=== PATIENT | female | born 1945 | race Caucasian/White ===

== ENCOUNTER 2020-10-05 14:26 | Inpatient (IN) | payer MEDICARE, SELFPAY ==
[2020-10-05] VITALS (15 sets, daily range): BP systolic 105–157; BP diastolic 53–98; PULSE 103–134; RESP 18–28; TEMP 35.9–36.9; O2SAT 88–98; BMI 36.7; BMI 38.9
--- NOTE | 2020-10-05 14:30 | NURSING ---
NO OLD EKGS
--- NOTE | 2020-10-05 14:39 | EKG12_ITS ---
Test Reason : SOB Blood Pressure : / mmHG Vent. Rate : 106 BPM Atrial Rate : 366 BPM P-R Int : 000 ms QRS Dur : 076 ms QT Int : 346 ms P-R-T Axes : 000 002 005 degrees QTc Int : 459 ms Atrial flutter with variable A-V block Nonspecific T wave abnormality Abnormal ECG Confirmed by LEIGHA CONNER, CHRIS ([id number]), photography editor HELENA MORALES ([id number]) on 10/07/2020 12:27:44 PM Referred By: GOKUL Confirmed By:CHRIS AHUJA MD
--- NOTE | 2020-10-05 14:40 | EDS_ITS ---
HPI History of Present Illness Chief Complaint: Shortness of Breath Informant: patient Onset/Context/Timing Onset: Days (Day 9 of symptoms) Context: Gradual Onset Current Severity: Moderate Maximum Severity: Moderate Narrative Narrative: Patient presents with known Covid positive status and increasing shortness of breath. Patient states that she is currently on day 9 of symptoms. She has mild cough with shortness of breath. She has not measured a fever. She does report poor p.o. intake. On arrival to the emergency room pulse ox on room air is 88%. Patient denies chest pain. She is on Eliquis secondary to a history of atrial fibrillation. [facility] Medical History Afib CAD (coronary artery disease) Allergy/AdvReac Type Severity Reaction Status Date / Time No Known Allergies Allergy Verified 10/05/20 15:08 Social History Smoking Status: Never smoker ROS ROS ED Constitutional Constitutional ED: Denies chills or fever(s) Eyes Eyes: Denies change in vision ENT ENT ED: Denies sore throat Cardiovascular Cardiovascular: Denies chest pain Respiratory/Chest Respiratory/Chest: Reports cough and dyspnea Gastrointestinal Gastrointestinal: Reports diarrhea and nausea; Denies abdominal pain or vomiting Genitourinary Genitourinary ED: Denies dysuria Musculoskeletal Musculoskeletal: Denies back pain Integumentary Denies rash Neurologic Neurologic: Reports weakness; Denies headache(s) Psychiatric Psychiatric: Denies anxiety or depression Endocrine Endocrinology: Denies polydipsia or polyuria Allergic/Immunologic Allergic/Immunologic ED: Denies urticaria EXAM Physical Exam Const Vital Signs: 10/05/20 14:28 10/05/20 14:32 10/05/20 14:33 Temperature 97.8 F 97.8 F Temperature Source Temporal Temporal Pulse Rate 103 H 103 H Respiratory Rate 18 19 H Respiratory Effort Respiratory Depth Respiratory Pattern Blood Pressure 127/74 H 151/90 H Blood Pressure Mean 91 110 Pulse Ox 88 94 94 Oxygen Delivery Method Room Air Nasal Cannula Nasal Cannula Oxygen Flow Rate (L/min) 2 10/05/20 15:05 Temperature Temperature Source Pulse Rate Respiratory Rate Respiratory Effort Non-Labored Respiratory Depth Normal Respiratory Pattern Normal Blood Pressure Blood Pressure Mean Pulse Ox Oxygen Delivery Method Nasal Cannula Oxygen Flow Rate (L/min) 2 Positive well nourished and well developed General Appearance ED: well developed HEENT Reports normocephalic and head/scalp atraumatic Eyes PERRL and EOMs intact bilaterally Neck supple Chest Wall inspection of chest normal and palpation of chest normal Resp normal respiratory effort Auscultation: diminished lung sounds Cardio regular rate and regular rhythm GI non-tender Auscultation: hypoactive bowel sounds Palpation: soft Extremity normal to inspection Neuro oriented x3 and no sensory deficits noted Sensorium / Orientation: alert Motor Exam: strength 5/5 throughout Psych mental status grossly normal Skin no rashes or lesions noted MDM MDM MDM Narrative Medical decision making narrative: Patient is currently on 2 and half liters nasal cannula. O2 sats to the mid 90s. Labs, chest x-ray are ordered. Patient is on Eliquis chronically. Lab Data Attestation: I reviewed the patient's lab results. Labs: Laboratory Results - last 24 hr 10/05/20 10/05/20 10/05/20 14:45 14:45 14:45 WBC 8.9 RBC 5.07 Hgb 15.1 H Hct 46.2 MCV 91.1 MCH 29.8 MCHC 32.7 RDW Std Deviation 44.7 H RDW Coeff of Tor 13.2 Plt Count 271 MPV 10.2 Immature Gran % (Auto) 0.700 Neut % (Auto) 80.6 H Lymph % (Auto) 13.0 L Roane % (Auto) 5.4 Eos % (Auto) 0.1 Baso % (Auto) 0.2 Absolute Neuts (auto) 7.2 Absolute Lymphs (auto) 1.15 Nucleated RBC % 0 Sodium 137 Potassium 4.3 Chloride 102 Carbon Dioxide 25.0 Anion Gap 10 BUN 43 H Creatinine 1.46 H Estim Creat Clear Calc 29.19 Est GFR (MDRD) Af Amer 45 L Est GFR (MDRD) Non-Af 37 L BUN/Creatinine Ratio 29.5 H Glucose 155 H Lactic Acid 2.9 H* Calcium 9.4 Total Bilirubin 0.80 AST 55 H ALT 26 Alkaline Phosphatase 81 Total Protein 7.2 Albumin 3.0 L Globulin 4.2 Albumin/Globulin Ratio 0.7 L Procalcitonin 10/05/20 14:45 WBC RBC Hgb Hct MCV MCH MCHC RDW Std Deviation RDW Coeff of Tor Plt Count MPV Immature Gran % (Auto) Neut % (Auto) Lymph % (Auto) Roane % (Auto) Eos % (Auto) Baso % (Auto) Absolute Neuts (auto) Absolute Lymphs (auto) Nucleated RBC % Sodium Potassium Chloride Carbon Dioxide Anion Gap BUN Creatinine Estim Creat Clear Calc Est GFR (MDRD) Af Amer Est GFR (MDRD) Non-Af BUN/Creatinine Ratio Glucose Lactic Acid Calcium Total Bilirubin AST ALT Alkaline Phosphatase Total Protein Albumin Globulin Albumin/Globulin Ratio Procalcitonin 0.13 H Radiography Chest X-Ray - ED: 1 View, Read by ED Physician and Left Infiltrate EKG Initial EKG: Attestation: I personally reviewed and interpreted this EKG as follows: Interpretation: Atrial Flutter (Atrial flutter at 106. No acute ST change.) Treatment and Re-Evaluation Comments:: On repeat evaluation patient is resting comfortably. O2 sat is 96% on oxygen. Formal chest x-ray report is not yet back, however per my interpretation it appears that she has a left-sided infiltrate. She will be covered with a course of Decadron. She will require admission as room air oxygen level was 88%. Discharge Plan Triage Chief Complaint: Shortness of Breath ED Provider: Amanda Odonnell Dx/Rx/DC Orders Clinical Impression: Pneumonia due to COVID-19 virus Primary Care Provider: Oneil Warren Referrals: Oneil Warren MD [Primary Care Provider] - Disposition Disposition: Acute Care [facility]
[2020-10-05 14:57] LABS: Absolute Lymphocyte Count 1.15 X10^3/uL (0.83-4.51); Absolute Neutrophil Count 7.2 X10^3/uL (2.0-7.7); Basophil# 0.02 X10^3/uL; Basophil% 0.2 % (0-1); Eosinophil# 0.01 X10^3/uL; Eosinophils% 0.1 % (0-5); Hematocrit 46.2 % (37-47); Hemoglobin 15.1 g/dL (12.0-15.0); Lymphocyte # 1.15 X10^3/ul (0.83-4.51); Mean Corp Hgb Conc 32.7 g/dL (32-36); Mean Corpuscular Hgb 29.8 pg (27.0-32.0); Mean Corpuscular Volume 91.1 fL (81-99); Mean Platelet Vol. 10.2 fl (6.2-12.0); Monocyte# 0.48 X10^3/uL; Monocyte% 5.4 % (0-10); NRBC Flagged by Analyzer 0 % (0-5); Neutrophil # 7.15 X10^3/uL (2.7-7.7); Neutrophil % 80.6 % (47-70); Platelet Count 271 K/mm3 (150-450); RBC Distribution Width CV 13.2 % (11.6-14.6); RBC Distribution Width SD 44.7 fl (35.1-43.9); Red Blood Count 5.07 M/mm3 (4.2-5.4); White Blood Count 8.9 K/mm3 (4.4-11.0)
[2020-10-05 15:14] LABS: ALB/GLOB Ratio 0.7 RATIO (0.9-2.4); AST(SGOT) 55 U/L (15-37); Alanine Aminotransfer ALT/SGPT 26 U/L (13-56); Alkaline Phosphatase 81 U/L (45-117); Anion Gap 10 (5-15); BUN 43 mg/dL (7-18); BUN/Creat Ratio 29.5 RATIO (10-20); Calcium,Total 9.4 mg/dL (8.5-10.1); Chloride 102 mmol/L (98-107); Creatinine, Serum 1.46 mg/dL (0.55-1.02); EST Glomerular Filtration Rate 37 mL/min (>60); Est Glom Filt Rate - Afr Amer 45 mL/min (>60); Estimated Creatinine Clearance 29.19 ml/min; Globulin 4.2 g/dL (2.2-4.2); Glucose 155 mg/dL (74-106); Potassium 4.3 mmol/L (3.5-5.1); Protein, Total 7.2 g/dL (6.4-8.2); Sodium Level 137 mmol/L (136-145)
[2020-10-05 15:22] LABS: Procalcitonin 0.13 ng/mL (0.00-0.09)
--- NOTE | 2020-10-05 15:22 | RAD_ITS ---
STUDY: X-RAY CHEST REASON FOR EXAM: Female, 75 years old. Cough TECHNIQUE: Single AP portable view of the chest. COMPARISON: None. FINDINGS: EKG electrodes are seen. The lungs are clear and expanded. There is no demonstrated pleural abnormality. There is borderline cardiomegaly. Normal mediastinum and lashawn. Normal visualized pulmonary arteries. There is atherosclerotic calcification of the aortic arch with tortuosity. Normal visualized thoracic spine. Normal visualized ribs, clavicles, and shoulders. There is no demonstrated abnormality of the visualized soft tissue structures of the upper abdomen. RAD/Chest 1 View (Portable) IMPRESSION: No acute abnormality is seen. Electronically Signed: Darrel Ohara MD at 15:37 EDT , Service support ,
[2020-10-05 15:23] LABS: Lactic Acid 2.9 mmol/L (0.4-1.9)
[2020-10-05] MEDS: dexAMETHasone 10 MG/ML Vial 6 MG IV (15:48)
--- NOTE | 2020-10-05 15:49 | PCM.HP.STD ---
HPI - General General Date of Admission: 10/05/20 Date of Service: 10/05/20 Chief Complaint: Dyspnea, cough, worsening, recent COVID + status, sxs x 9 days. HPI Narrative The patient is a 75 y/o F w/ PMHx: Hx CVA, PAF on eliquis, Hypothyroidism, CAD s/p PCI x 2 12/2019 following w/ Cardiology at [facility] Dr. Balderas, HTN, HLD who presents to the [facility] ED on 10/05/20 with history of onset of symptoms x 9 days with + outpatient COVID testing at [facility] in [place] (unclear date) with initial chills, body aches, diarrhea (resolved x 3 days) without nausea or emesis, decreased sense of taste and smell (onset over the last 2 days) with progressively worsening dyspnea, cough, fatigue and malaise with no improvement with home self administration of aerosols prompting EMS call. EMS en route secondary to patient presentation did administer solumedrol 125 mg IV x 1 as well as duoneb therapies. Work-up in the ED included T 97.8, HR 103, BP 127/74, RR 19, initially 88% on RA improved to 94% on 2L NC, CBC with WBC 8.9, hemoglobin 15.1, platelet 271 with no significant shift, CMP with BUN/creatinine 43/1.46, glucose 155, AST/LT 55/26, otherwise unremarkable pack profile, procalcitonin 0.13, blood culture pending per ED, EKG w/ atrial flutter, CXR read per ED with concern for possible LLL infiltrate; however, formal radiation read with no acute cardiopulmonary findings. In the ED patient administered IV decadron 6 mg x 1. [facility] Medical History (Updated 10/05/20 @ 16:[address] Alicia Lima MD) Afib CAD (coronary artery disease) (~12/06/19) HLD (hyperlipidemia) Hypertension Hypothyroidism Stroke/cerebrovascular accident Home Medications apixaban [Eliquis] 5 mg PO DAILY 10/05/20 [History Last Taken 10/05/20] clopidogrel 75 mg PO DAILY 10/05/20 [History Last Taken 10/05/20] cyclobenzaprine 10 mg PO BID PRN 10/05/20 [History Last Taken Unknown] diltiazem HCl 90 mg PO TID 10/05/20 [History Last Taken 10/05/20] hydrochlorothiazide 25 mg PO DAILY 10/05/20 [History Last Taken Unknown] levothyroxine [Euthyrox] 137 mcg PO DAILY 10/05/20 [History Last Taken 10/05/20] lisinopril 10 mg PO QHS 10/05/20 [History Last Taken 10/04/20] simvastatin 20 mg PO QHS 10/05/20 [History Last Taken 10/04/20] sotalol 80 mg PO BID 10/05/20 [History Last Taken 10/05/20] Allergy/AdvReac Type Severity Reaction Status Date / Time No Known Allergies Allergy Verified 10/05/20 15:08 Family History (Updated 10/05/20 @ 16:[address] Alicia Lima MD) Mother Heart disease Myocardial infarction Father Dementia in Alzheimer's disease Surgical History (Updated 10/05/20 @ 16:[address] Alicia Lima MD) Hx of cholecystectomy Hx of heart artery stent Social History (Updated 10/05/20 @ 16:[address] Alicia Lima MD) household members: none Smoking Status: Never smoker alcohol intake: never substance use type: does not use ROS ROS Narrative Admission Review of Systems: CONSTITUTIONAL: No weight loss, fever, + chills, weakness or fatigue. HEENT: Eyes: No visual loss, blurred vision, double vision or yellow sclerae. Ears, Nose, Throat: No hearing loss, sneezing, congestion, runny nose or sore throat. SKIN: No rash or itching, lesions, wounds. CARDIOVASCULAR: No chest pain, chest pressure or chest discomfort, palpitations, edema, orthopnea, syncopal events. RESPIRATORY: + shortness of breath, cough, No sputum, wheezing, hemoptysis. GASTROINTESTINAL: + Diarrhea. No anorexia, nausea, vomiting, abdominal pain, melena, BRBPR. GENITOURINARY: No dysuria, frequency, urgency or retention. NEUROLOGICAL: No headache, dizziness, syncope, paralysis, ataxia, numbness or tingling in the extremities, focal weakness, change in bowel or bladder control, seizure. MUSCULOSKELETAL: + muscle, back pain, joint pain or stiffness. HEMATOLOGIC: + anemia, bleeding or bruising. LYMPHATICS: No enlarged nodes. No history of splenectomy. PSYCHIATRIC: No history of depression or anxiety. ENDOCRINOLOGIC: No reports of sweating, cold or heat intolerance. No polyuria or polydipsia. ALLERGIES: No history of asthma, hives, eczema or rhinitis. Vital Signs Vital Signs Vital Signs: 10/05/20 14:28 10/05/20 14:32 10/05/20 14:33 Temperature 97.8 F 97.8 F Temperature Source Temporal Temporal Pulse Rate 103 H 103 H Respiratory Rate 18 19 H Respiratory Effort Respiratory Depth Respiratory Pattern Blood Pressure 127/74 H 151/90 H Blood Pressure Mean 91 110 Pulse Ox 88 94 94 Oxygen Delivery Method Room Air Nasal Cannula Nasal Cannula Oxygen Flow Rate (L/min) 2 10/05/20 15:05 Temperature Temperature Source Pulse Rate Respiratory Rate Respiratory Effort Non-Labored Respiratory Depth Normal Respiratory Pattern Normal Blood Pressure Blood Pressure Mean Pulse Ox Oxygen Delivery Method Nasal Cannula Oxygen Flow Rate (L/min) 2 Weight Weight: 214 lb 1.102 oz Body Mass Index (BMI) 36.7 Physical Exam Narrative Physical Examination: General: awake, alert, oriented x 3 and cooperative, seated upright in the ED bed in no apparent distress, fatigued and ill appearing. Skin: normal color, normal turgor, no icterus, no cyanosis. HEENT: AT/NC, EOMI, PERRLA, moderately dry MM, no carotid bruits, no obvious elevated JVD although thickened neck makes examination difficult. Lungs: Diffusely diminished, > bases, no evidence of distress, moderate effort, no rales, ronchi or wheezing. Heart: Irregular; no gallop, rub audible. Abdomen: soft, obese, NTTP, ND, distant normal BS, no HSM. Extremities: no cyanosis, no clubbing, no edema. Mild BL TTP calves. Neurological: patient awake, alert, oriented x 3, cognitive function intact; pupils equally reactive to light and accommodation, cranial nerves II-XII grossly normal, moving all 4 extremities, no focal deficits, strength moderately to severely globally decreased secondary to acute presentation. Psychiatric: affect appears fatigued, ill appearing, no acute evidence of depressive or anxiety feelings. Lab / Micro Data Result Diagrams: 10/05/20 14:45 10/05/20 14:45 Labs: Laboratory Results - last 24 hr 10/05/20 10/05/20 10/05/20 14:45 14:45 14:45 WBC 8.9 RBC 5.07 Hgb 15.1 H Hct 46.2 MCV 91.1 MCH 29.8 MCHC 32.7 RDW Std Deviation 44.7 H RDW Coeff of Tor 13.2 Plt Count 271 MPV 10.2 Immature Gran % (Auto) 0.700 Neut % (Auto) 80.6 H Lymph % (Auto) 13.0 L Nicholas % (Auto) 5.4 Eos % (Auto) 0.1 Baso % (Auto) 0.2 Absolute Neuts (auto) 7.2 Absolute Lymphs (auto) 1.15 Nucleated RBC % 0 Sodium 137 Potassium 4.3 Chloride 102 Carbon Dioxide 25.0 Anion Gap 10 BUN 43 H Creatinine 1.46 H Estim Creat Clear Calc 29.19 Est GFR (MDRD) Af Amer 45 L Est GFR (MDRD) Non-Af 37 L BUN/Creatinine Ratio 29.5 H Glucose 155 H Lactic Acid 2.9 H* Calcium 9.4 Total Bilirubin 0.80 AST 55 H ALT 26 Alkaline Phosphatase 81 Total Protein 7.2 Albumin 3.0 L Globulin 4.2 Albumin/Globulin Ratio 0.7 L Procalcitonin 10/05/20 14:45 WBC RBC Hgb Hct MCV MCH MCHC RDW Std Deviation RDW Coeff of Tor Plt Count MPV Immature Gran % (Auto) Neut % (Auto) Lymph % (Auto) Nicholas % (Auto) Eos % (Auto) Baso % (Auto) Absolute Neuts (auto) Absolute Lymphs (auto) Nucleated RBC % Sodium Potassium Chloride Carbon Dioxide Anion Gap BUN Creatinine Estim Creat Clear Calc Est GFR (MDRD) Af Amer Est GFR (MDRD) Non-Af BUN/Creatinine Ratio Glucose Lactic Acid Calcium Total Bilirubin AST ALT Alkaline Phosphatase Total Protein Albumin Globulin Albumin/Globulin Ratio Procalcitonin 0.13 H Radiology Impression Chest X-Ray 10/05/20 15:22 IMPRESSION: No acute abnormality is seen. Electronically Signed: Darrel Ohara MD at 15:37 EDT , Service support , Assessment & Plan Assessment/Plan (1) Severe sepsis: (2) COVID-19: (3) Hypoxia: PLAN: The patient is a 75 y/o F w/ PMHx: Hx CVA, PAF on eliquis, Hypothyroidism, CAD s/p PCI x 2 12/2019 following w/ Cardiology at [facility] Dr. Balderas, HTN, HLD who presents to the [facility] ED on 10/05/20 with history of onset of symptoms x 9 days with + outpatient COVID testing at [facility] in [place] (unclear date) with initial chills, body aches, diarrhea (resolved x 3 days) without nausea or emesis, decreased sense of taste and smell (onset over the last 2 days) with progressively worsening dyspnea, cough, fatigue and malaise with no improvement with home self administration of aerosols prompting EMS call. 1. Acute Severe Sepsis secondary to Acute Hypoxia secondary to Acute Viral Syndrome, COVID-19: Will admit to the COVID unit, will maintain on oxygen with wean as tolerated to room air, PRN albuterol, HOB, IS parameters w/ pending sputum cultures, respiratory viral panel and urine antigens, will obtain D-dimer, CRP, CPK, Ferritin, LDH, trop and BNP, continue supportive care including q 2 hour turning including prone given no prone bed availability and judicious hydration given elevated lactic acid and possible APRIL, closely monitor for worsening status for ARDS and multiorgan failure, will consult Infectious disease, will initiate and continue IV decadron x 10 doses, given presentation and timeline will also initiate IV remdesivir but defer to discretion of Infectious disease and continue to closely monitor renal function. 2. Acute kidney injury versus CKD stage III, unclear type: No comparison data, unclear if acute or chronic, admission BUN/Cr 43/1.46. Given presentation will judiciously hydrate, hold nephrotoxic medications and repeat chemistry in AM. If no improvement would plan FeNa and renal US assessment. 3. Hyperglycemia: Denies diabetes history, admission glucose 155, hemoglobin A1c requested be cautious and in interim as discussed with patient will maintain on ASA diet, accu checks with ISS especially given usage IV decadron. 4. 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 5. CAD: Status post PCI x2 December 2019, continue Eliquis, Plavix, statin, diltiazem, temporarily holding patient lisinopril with planned re-addition once renal function improved or assured stable. 6. Hypothyroidism: Continue home synthroid regimen, TSH pending. 7. Hypertension: Continue home regimen including diltiazem, sotalol, holding HCTZ/lisinopril, PRN hydralazine. 8. Hyperlipidemia: Continue home statin regimen. 9. Obesity: Weight loss and lifestyle changes encouraged. 10. History CVA: We will continue patient Plavix, Eliquis, statin, hypertensive regimen, assessing for diabetes as noted above. 11. DVT prophylaxis: SCDs, continue home Eliquis regimen. 12. CODE status: Patient DEVORAH is her daughter Kimmie Fowler who was recently discharged following COVID associated hospitalization and improving per her report and living will is currently in place. Discussed CODE status at length including difference between FULL code, DNR-CCA and DNR-CC status. Following discussions about the differences in these status, requested Full Code status. Advanced Care Planning Face to Face Time: 16 minutes. Visit Charges Inpatient E&M: 99086 Init Hosp L3 Procedures Hospitalists Procedures: 93554 Advncd Care Plan 30 Min
--- NOTE | 2020-10-05 15:54 | NURSING ---
MED SURG COVID, HYPOXIA WHITE
[2020-10-05 16:23] LABS: BNP,B-Type NATRIURETIC PEPTIDE 521.6 pg/mL (0-100)
[2020-10-05 16:30] LABS: Ferritin 1116 ng/mL (8-252); LDH 366 U/L (84-246); Magnesium 1.9 mg/dL (1.6-2.6)
[2020-10-05 16:39] LABS: D-Dimer Quantitative (DVT/PE) 1.22 FEU/ug/m (0.27-0.49)
[2020-10-05 18:52] LABS: Reflex Lactate? Y
[2020-10-05 19:55] LABS: Lactic Acid 1.5 mmol/L (0.4-1.9)
[2020-10-05] MEDS: 0.9% Normal Saline 1,000 ML 100 ML IV (21:45)
[2020-10-05] MEDS: Insulin Lispro 100 UNIT/ML INSULN.PEN SC (21:49)
[2020-10-06] VITALS (17 sets, daily range): BP systolic 98–169; BP diastolic 57–93; PULSE 84–130; RESP 16–20; TEMP 35.8–36.9; O2SAT 93–99; BMI 39.2
[2020-10-06 00:41] LABS: Bedside Glucose 181 mg/dL (70-110)
[2020-10-06] MEDS: dilTIAZem 60 MG Tablet PO (01:04)
[2020-10-06 04:18] LABS: Absolute Lymphocyte Count 0.75 X10^3/uL (0.83-4.51); Absolute Neutrophil Count 4.4 X10^3/uL (2.0-7.7); Basophil# 0.01 X10^3/uL; Basophil% 0.2 % (0-1); Hematocrit 43.7 % (37-47); Hemoglobin 14.5 g/dL (12.0-15.0); Lymphocyte # 0.75 X10^3/ul (0.83-4.51); Lymphocyte % 13.8 % (19-41); Mean Corp Hgb Conc 33.2 g/dL (32-36); Mean Corpuscular Hgb 30.1 pg (27.0-32.0); Mean Corpuscular Volume 90.9 fL (81-99); Mean Platelet Vol. 10.4 fl (6.2-12.0); Monocyte# 0.21 X10^3/uL; Monocyte% 3.9 % (0-10); NRBC Flagged by Analyzer 0 % (0-5); Neutrophil # 4.42 X10^3/uL (2.7-7.7); Platelet Count 250 K/mm3 (150-450); RBC Distribution Width CV 13.2 % (11.6-14.6); RBC Distribution Width SD 44.4 fl (35.1-43.9); Red Blood Count 4.81 M/mm3 (4.2-5.4); White Blood Count 5.5 K/mm3 (4.4-11.0)
[2020-10-06 04:46] LABS: ALB/GLOB Ratio 0.7 RATIO (0.9-2.4); AST(SGOT) 40 U/L (15-37); Alanine Aminotransfer ALT/SGPT 27 U/L (13-56); Albumin, Serum 2.8 g/dL (3.2-5.0); Alkaline Phosphatase 77 U/L (45-117); Anion Gap 10 (5-15); BUN 46 mg/dL (7-18); BUN/Creat Ratio 35.1 RATIO (10-20); Calcium,Total 8.8 mg/dL (8.5-10.1); Chloride 104 mmol/L (98-107); Creatinine, Serum 1.31 mg/dL (0.55-1.02); EST Glomerular Filtration Rate 42 mL/min (>60); Est Glom Filt Rate - Afr Amer 51 mL/min (>60); Globulin 3.9 g/dL (2.2-4.2); Glucose 190 mg/dL (74-106); Protein, Total 6.7 g/dL (6.4-8.2); Sodium Level 138 mmol/L (136-145)
[2020-10-06 07:34] LABS: Hemoglobin A1c 5.6 % (3.8-5.6)
[2020-10-06] MEDS: Insulin Lispro 100 UNIT/ML INSULN.PEN SC ×3 (08:58→21:19)
[2020-10-06] MEDS: 0.9% Normal Saline 1,000 ML 100 ML IV ×2 (08:58→17:29)
[2020-10-06] MEDS: dilTIAZem 30 MG Tablet 90 MG PO ×2 (08:59→21:07)
[2020-10-06] MEDS: Sotalol Hydrochloride 80 MG Tablet PO ×2 (08:59→21:06)
[2020-10-06] MEDS: APIXABAN 5 MG TABLET PO (08:59)
[2020-10-06] MEDS: dexAMETHasone 10 MG/ML Vial 6 MG IV (09:00)
[2020-10-06 09:30] LABS: Bedside Glucose 157 mg/dL (70-110)
--- NOTE | 2020-10-06 10:07 | EX.NTREPO ---
Medical Nutrition Therapy - History Nutrition Services has been consulted to:: Manage nutrient details of diet order Current diet/nutrition support order:: consistent carbohydrate, 1800 calorie controlled - Anthropometric Measurements Height:: 5 ft 2 in Weight:: 97.2 kg Body Mass Index (BMI):: 39.2 - Relevant Labs Relevant Labs:: Hgb 15.1 g/dL (12.0-15.0) H 10/05/20 14:45 RDW Std Deviation 44.4 fl (35.1-43.9) H 10/06/20 04:00 Immature Gran % (Auto) 1.100 % (0.0-0.9) H 10/06/20 04:00 Neut % (Auto) 81.0 % (47-70) H 10/06/20 04:00 Lymph % (Auto) 13.8 % (19-41) L 10/06/20 04:00 Absolute Lymphs (auto) 0.75 X10^3/uL (0.83-4.51) L 10/06/20 04:00 D-Dimer Quant (PE/DVT) 1.22 FEU/ug/m (0.27-0.49) H* 10/05/20 14:45 BUN 46 mg/dL (7-18) H 10/06/20 04:00 Creatinine 1.31 mg/dL (0.55-1.02) H 10/06/20 04:00 Est GFR (MDRD) Af Amer 51 mL/min (>60) L 10/06/20 04:00 Est GFR (MDRD) Non-Af 42 mL/min (>60) L 10/06/20 04:00 BUN/Creatinine Ratio 35.1 RATIO (10-20) H 10/06/20 04:00 Glucose 190 mg/dL (74-106) H 10/06/20 04:00 Lactic Acid 2.9 mmol/L (0.4-1.9) H* 10/05/20 14:45 Ferritin 1116 ng/mL (8-252) H 10/05/20 14:45 AST 40 U/L (15-37) H 10/06/20 04:00 Lactate Dehydrogenase 366 U/L (84-246) H 10/05/20 14:45 Troponin I 0.052 ng/mL (<0.045) H 10/05/20 14:45 C-React Prot Ext Range 56.00 mg/L (0.0-3.0) H 10/05/20 14:45 B-Natriuretic Peptide 521.6 pg/mL (0-100) H 10/05/20 14:45 Albumin 2.8 g/dL (3.2-5.0) L 10/06/20 04:00 Albumin/Globulin Ratio 0.7 RATIO (0.9-2.4) L 10/06/20 04:00 Procalcitonin 0.13 ng/mL (0.00-0.09) H 10/05/20 14:45 - Assessment Food and Nutrient Intake: Describes fair PO intake at breakfast this AM. States she was eating very poorly for 1 week [employer] 2[employer] SHIFT d/t acute illness, loss of taste/smell, and diarrhea. States UBW 220# and CBW 214.3#-5.7#/2.6% wt loss x ~9 days per [employer] is significant for acute malnutrition. - Nutrition Diagnosis: Clinical Problem Acute Disease or Injury Related Malnutrition Clinical Problem - Etiology: acute, moderate malnutrition r/t inadequate energy intake during acute COVID-19 illness Clinical Problem - Signs/Symptoms: as evidenced by estimated PO intake meeting <75% of nutritional needs x 1 week, reported unintentional wt loss of 5.7#/2.6% x 9 days - Protein Calorie Malnutrition Evidence of Malnutrition Exists: Yes Moderate Protein Calorie Malnutrition: Acute Illness/Injury - Nutrition Intervention Nutrition Prescription: [id number] calories/day (1.3xRMR). 77-97 g protein/day (0.8-1.0 g/kg). 1944mL fluid/day (20mL/kg) - Food / Nutrient Delivery Interventions Summary of nutrition intervention:: Nutrition education provided, Adjust diet order Nutrition support ordered as / adjusted to:: will change diet to regular and monitor need for ONS w/ meals if PO intake does not improve. Nutrition education provided?: Yes - MNT Monitoring Active Nutrition Patient: Yes Nutrition Status: Requires Follow Up 3-5 Days
--- NOTE | 2020-10-06 10:36 | CASEMGMT ---
Addendum entered by Jeanna Chairez 10/06/20 10:48: Pt in COVID precautions. She had COVID testing done @ [facility] in [place]. She is uncertain of what day she had the testing done, but states she is on day #10 of quarantine. Original Note: RN [employer] INST[employer] CM placed call to pt's room for initial transition planning/care coordination assessment. JUAN BHANDARI introduced self and role at [facility]. Pt voices understanding and consents to assessment at this time. Pt is A/O at this time and answers all questions appropriately. Care providers, pharmacy, and demographics verified/updated at this time. PCP: Dr Oneil Warren Specialists: Dr Balderas--p[employer] team member Preferred Pharmacy: [facility] Retail pharmacy Insurance: [employer] Prescription Benefit: Yes Living Will/HPOA: Has both LW and Healthcare POA, who is her daughter, Kimmie Fowler. LNOK: Dtr, Kimmie Fowler. Living Arrangements: Lives alone in one-story home w/ramp entrance. Independent w/ADL's and IADL's. States is stocked up well on groceries and supplies. Dtr, Kimmie, lives 2 blocks away. Pt's states Kimmie was just d/c'd from [facility] yesterday w/COVID also, but states Kimmie can order groceries/supplies thru [employer]-side machine pecan picker if they would need anything. DME: States has/uses the following DME: cane, shower chair Has available/but does not use: W/C, motorized W/C Pt states no need for further DME at this time. Pt does not have home O2. Currently on 1 L/M. JUAN BHANDARI reviewed local DME co's consistent with the patient's preferred geographic region, medical needs, and insurance network. If pt qualifies for Home O2 @ d/c, she states would like to use the same DME co that her daughter used. This was [employer]. HHC/SNF: No history of either. Pt wishes to return home and states has no concerns with going home at time of discharge and denies need for HHC. Per documentation, pt was a 2 assist to [facility]. Pt states she feels she will be strong enough to return home. PT/OT evals are pending. She was made aware CM would follow PT/OT evals/notes and discuss d/c planning w/pt again if additional therapy is recommended. Pt was also made aware, if she feels she would like [facility] or does not feel safe to return home alone, to ask to speak w/CM. She voices understanding. CM to follow for home oxygen needs and any further discharge planning/needs. Pt voices no concerns/needs at this time. Advised pt to ask for CM if any questions/concerns/needs arise. Voices understanding. PLAN: Home Follow PT/OT notes. Follow for any O2 needs @ d/c Honey CATHERINEN RN CM
--- NOTE | 2020-10-06 11:11 | PN.HOSP_ITS ---
Subjective Subjective Patient seen and examined. She was admitted with a complaint of shortness of breath and cough. She had recently been tested for Covid. She has been managed for acute hypoxic respiratory insufficiency due to COVID-19 infection. Patient feels better and has no complaints this morning. She had not taken both Covid vaccines. She feels her breathing is getting better. Her blood cultures came back positive for gram-positive cocci in clusters today. She was also noted to be tachycardic this morning. She does have a history of A. fib. Her heart rate was up in the 130s but she had just been given her sotalol and Cardizem. Objective Data Objective Data Vital Signs: Vital Signs Temp Pulse Resp BP Pulse Ox 96.5 F L 103 H 18 98/82 H 99 10/06/20 10:51 10/06/20 10:51 10/06/20 10:51 10/06/20 10:51 10/06/20 10:51 Oxygen Flow Rate (L/min) 1 Oxygen Delivery Method Nasal Cannula Weight: 214 lb 4.629 oz Body Mass Index (BMI) 39.2 Intake & Output: Intake and Output for Last 24 Hours 10/04/20 10/05/20 10/06/20 23:59 23:59 23:59 Intake Total 1250 / 1250 Output Total 600 / 600 Balance -600 / -600 1250 / 1250 Lab / Micro Data Result Diagrams: 10/06/20 04:00 10/06/20 04:00 Labs: Laboratory Results - last 24 hr 10/05/20 10/05/20 10/05/20 14:45 14:45 14:45 WBC 8.9 RBC 5.07 Hgb 15.1 H Hct 46.2 MCV 91.1 MCH 29.8 MCHC 32.7 RDW Std Deviation 44.7 H RDW Coeff of Tor 13.2 Plt Count 271 MPV 10.2 Immature Gran % (Auto) 0.700 Neut % (Auto) 80.6 H Lymph % (Auto) 13.0 L [place] % (Auto) 5.4 Eos % (Auto) 0.1 Baso % (Auto) 0.2 Absolute Neuts (auto) 7.2 Absolute Lymphs (auto) 1.15 Nucleated RBC % 0 D-Dimer Quant (PE/DVT) Sodium 137 Potassium 4.3 Chloride 102 Carbon Dioxide 25.0 Anion Gap 10 BUN 43 H Creatinine 1.46 H Estim Creat Clear Calc 29.19 Est GFR (MDRD) Af Amer 45 L Est GFR (MDRD) Non-Af 37 L BUN/Creatinine Ratio 29.5 H Glucose 155 H Hemoglobin A1c Lactic Acid 2.9 H* Calcium 9.4 Magnesium Ferritin Total Bilirubin 0.80 AST 55 H ALT 26 Alkaline Phosphatase 81 Lactate Dehydrogenase Troponin I C-React Prot Ext Range B-Natriuretic Peptide Total Protein 7.2 Albumin 3.0 L Globulin 4.2 Albumin/Globulin Ratio 0.7 L Procalcitonin COVID-19 (EMILY) POC Glucose 10/05/20 10/05/20 10/05/20 14:45 14:45 14:45 WBC RBC Hgb Hct MCV MCH MCHC RDW Std Deviation RDW Coeff of Tor Plt Count MPV Immature Gran % (Auto) Neut % (Auto) Lymph % (Auto) [place] % (Auto) Eos % (Auto) Baso % (Auto) Absolute Neuts (auto) Absolute Lymphs (auto) Nucleated RBC % D-Dimer Quant (PE/DVT) 1.22 H* Sodium Potassium Chloride Carbon Dioxide Anion Gap BUN Creatinine Estim Creat Clear Calc Est GFR (MDRD) Af Amer Est GFR (MDRD) Non-Af BUN/Creatinine Ratio Glucose Hemoglobin A1c Lactic Acid Calcium Magnesium 1.9 Ferritin 1116 H Total Bilirubin AST ALT Alkaline Phosphatase Lactate Dehydrogenase 366 H Troponin I 0.052 H C-React Prot Ext Range 56.00 H B-Natriuretic Peptide Total Protein Albumin Globulin Albumin/Globulin Ratio Procalcitonin 0.13 H COVID-19 (EMILY) POC Glucose 10/05/20 10/05/20 10/05/20 14:45 15:10 19:15 WBC RBC Hgb Hct MCV MCH MCHC RDW Std Deviation RDW Coeff of Tor Plt Count MPV Immature Gran % (Auto) Neut % (Auto) Lymph % (Auto) [place] % (Auto) Eos % (Auto) Baso % (Auto) Absolute Neuts (auto) Absolute Lymphs (auto) Nucleated RBC % D-Dimer Quant (PE/DVT) Sodium Potassium Chloride Carbon Dioxide Anion Gap BUN Creatinine Estim Creat Clear Calc Est GFR (MDRD) Af Amer Est GFR (MDRD) Non-Af BUN/Creatinine Ratio Glucose Hemoglobin A1c Lactic Acid 1.5 Calcium Magnesium Ferritin Total Bilirubin AST ALT Alkaline Phosphatase Lactate Dehydrogenase Troponin I C-React Prot Ext Range B-Natriuretic Peptide 521.6 H Total Protein Albumin Globulin Albumin/Globulin Ratio Procalcitonin COVID-19 (EMILY) Detected POC Glucose 10/05/20 10/06/20 10/06/20 21:39 04:00 04:00 WBC 5.5 RBC 4.81 Hgb 14.5 Hct 43.7 MCV 90.9 MCH 30.1 MCHC 33.2 RDW Std Deviation 44.4 H RDW Coeff of Tor 13.2 Plt Count 250 MPV 10.4 Immature Gran % (Auto) 1.100 H Neut % (Auto) 81.0 H Lymph % (Auto) 13.8 L [place] % (Auto) 3.9 Eos % (Auto) 0.0 Baso % (Auto) 0.2 Absolute Neuts (auto) 4.4 Absolute Lymphs (auto) 0.75 L Nucleated RBC % 0 D-Dimer Quant (PE/DVT) Sodium 138 Potassium 4.0 Chloride 104 Carbon Dioxide 24.0 Anion Gap 10 BUN 46 H Creatinine 1.31 H Estim Creat Clear Calc 29.80 Est GFR (MDRD) Af Amer 51 L Est GFR (MDRD) Non-Af 42 L BUN/Creatinine Ratio 35.1 H Glucose 190 H Hemoglobin A1c Lactic Acid Calcium 8.8 Magnesium Ferritin Total Bilirubin 0.50 AST 40 H ALT 27 Alkaline Phosphatase 77 Lactate Dehydrogenase Troponin I C-React Prot Ext Range B-Natriuretic Peptide Total Protein 6.7 Albumin 2.8 L Globulin 3.9 Albumin/Globulin Ratio 0.7 L Procalcitonin COVID-19 (EMILY) POC Glucose 181 H 10/06/20 10/06/20 04:00 08:55 WBC RBC Hgb Hct MCV MCH MCHC RDW Std Deviation RDW Coeff of Tor Plt Count MPV Immature Gran % (Auto) Neut % (Auto) Lymph % (Auto) [place] % (Auto) Eos % (Auto) Baso % (Auto) Absolute Neuts (auto) Absolute Lymphs (auto) Nucleated RBC % D-Dimer Quant (PE/DVT) Sodium Potassium Chloride Carbon Dioxide Anion Gap BUN Creatinine Estim Creat Clear Calc Est GFR (MDRD) Af Amer Est GFR (MDRD) Non-Af BUN/Creatinine Ratio Glucose Hemoglobin A1c 5.6 Lactic Acid Calcium Magnesium Ferritin Total Bilirubin AST ALT Alkaline Phosphatase Lactate Dehydrogenase Troponin I C-React Prot Ext Range B-Natriuretic Peptide Total Protein Albumin Globulin Albumin/Globulin Ratio Procalcitonin COVID-19 (EMILY) POC Glucose 157 H Micro: Microbiology 10/05/20 14:45 Blood Culture (Wb) - Anticubital Right Bacteria Detection (PCR) - Final Coag Negative Staph 10/05/20 14:45 Blood Culture (Wb) - Anticubital Right Blood Culture - Preliminary 10/05/20 23:05 Urine, Clean Catch Legionella Antigen - Final 10/05/20 23:05 Urine, Clean Catch Streptococcus pneumoniae Antigen (M - Final 10/05/20 16:05 Mucosa - Nasopharyngeal Respiratory Panel (PCR) - Final Radiography Diagnostic Testing: Radiology Impression Chest X-Ray 10/05/20 15:22 IMPRESSION: No acute abnormality is seen. Electronically Signed: Darrel Ohara MD at 15:37 EDT , Service support , Physical Exam Const alert, oriented x3 and no apparent distress Exam Limitations: no limitations HEENT head/scalp atraumatic and moist oral mucous membranes Head and Scalp: normocephalic Eyes PERRL, EOMs intact bilaterally and conjunctivae normal Neck no lymphadenopathy, supple and no JVD Resp normal respiratory effort Resp Narrative: Mildly diminished breath sounds bibasilarly. No wheezes or crackles. On 2 L of oxygen. Cardio Cardio Narrative: A. fib, Tachycardic GI normal to inspection, nondistended, normoactive bowel sounds, soft to palpation, non-tender and non-distended Extremity normal to inspection, full ROM and no clubbing, cyanosis or edema Peripheral Pulses: Yes pulses 2+ throughout Skin no rashes or lesions noted Neuro oriented x3 Sensorium / Orientation: awake Psych affect normal Assessment & Plan Assessment/Plan (1) Pneumonia due to COVID-19 virus: (2) Severe sepsis: (3) Hypoxia: (4) COVID-19: (5) Bacteremia: PLAN: #Acute hypoxic respiratory insufficiency due to COVID 19 infection * Currently on 2 L of oxygen * On remdesivir and Decadron. * Titrate oxygen to maintain saturation above 90%. Breathing treatments of bronchodilators. ID consulted. * #Sepsis with bacteremia * Source of bacteremia is unclear. SIRS criteria is 2 out of 4 with patient being tachypneic and tachycardic this morning and blood pressure was also running low. * Blood culture 1 out of 2 growing gram-positive cocci in clusters. Coagulase- negative staph detected. Nucleic acid amplification method. * ID consulted. Coagulase-negative staph likely contaminant. Patient does not have any elevated white cell count either. Will await ID evaluation * #CKD stage III: Creatinine was elevated at 1.46 on admission. No baseline available. Currently down to 1.31. We will trend and continue gentle hydration with IV fluids. #A. fib with RVR: * Patient's heart rate is up in the 130s but she had just been given her oral sotalol and Cardizem. * Will monitor to see how this improves and if it does not, will start on a drip as needed. * On Eliquis. * #Hypothyroidism: On Synthroid #Hypertension: * Hydrochlorothiazide and lisinopril held on admission on account of elevated APRIL. * Blood pressure running low this morning so we will continue holding BP meds. #Hyperlipidemia: On statin #History of CVA: On statin and Plavix as well as Eliquis. #Elevated blood sugar: Blood sugar was mildly elevated on admission. A1c was 5.6 so diabetes ruled out. DVT prophylaxis: On Eliquis Visit Charges Inpatient E&M: 50771 Subs Hosp L3
[2020-10-06 11:40] LABS: Bedside Glucose 139 mg/dL (70-110)
--- NOTE | 2020-10-06 14:09 | PCM.CONS.GEN ---
Assessment & Plan Assessment/Plan (1) COVID-19: PLAN: covid with hypoxia - sx started around 09/25/20. On 10 days of dex, on remdesivir, will order monitoring labs. D-dimer elevated, recommend increasing lovenox to intermediate dosing. Single bcx with CoNS per pcr is consistent with contaminant. Recommend covid shot once she is out of her 20 day quarantine, starting from 09/25. Will follow, thank you, d/w primary team (2) Hypoxia: HPI Consult Data Date of Consult: 10/06/20 HPI Narrative HPI Narrative: DARRELL PALACIOS, is a 75 F who presented 10/05 with 9 days of not feeling well. C/o dry cough, mild aches, diarrhea, headache, change in taste/smell. No dyspnea, no fever. Granddaughter had covid 2 months ago, daughter recently admitted with covid, son-in-law in ED right now with covid. None have been vaccinated. Started on dex and remdesivir, feeling better today. Full ROS performed and neg except as noted above. [facility] Medical History Afib CAD (coronary artery disease) (~12/06/19) HLD (hyperlipidemia) Hypertension Hypothyroidism Stroke/cerebrovascular accident Home Medications apixaban [Eliquis] 5 mg PO DAILY 10/05/20 [History Last Taken 10/05/20] clopidogrel 75 mg PO DAILY 10/05/20 [History Last Taken 10/05/20] cyclobenzaprine 10 mg PO BID PRN 10/05/20 [History Last Taken Unknown] diltiazem HCl 90 mg PO BID 10/05/20 [History Last Taken 10/05/20] hydrochlorothiazide 25 mg PO DAILY 10/05/20 [History Last Taken Unknown] levothyroxine [Euthyrox] 137 mcg PO DAILY 10/05/20 [History Last Taken 10/05/20] lisinopril 10 mg PO QHS 10/05/20 [History Last Taken 10/04/20] simvastatin 20 mg PO QHS 10/05/20 [History Last Taken 10/04/20] sotalol 80 mg PO BID 10/05/20 [History Last Taken 10/05/20] Allergy/AdvReac Type Severity Reaction Status Date / Time No Known Allergies Allergy Verified 10/05/20 15:08 Family History (Updated 10/05/20 @ 16:[address] Alicia Lima MD) Mother Heart disease Myocardial infarction Father Dementia in Alzheimer's disease Surgical History Hx of cholecystectomy Hx of heart artery stent Social History (Updated 10/05/20 @ 16:[address] Alicia Lima MD) household members: none Smoking Status: Never smoker alcohol intake: never substance use type: does not use Physical Exam Const alert, oriented x3 and no apparent distress General Appearance: cooperative Eyes PERRL and EOMs intact bilaterally Neck supple and No nodes Resp clear to auscultation bilaterally Auscultation: diminished lung sounds Cardio regular rate and regular rhythm GI normal to inspection, nondistended, normoactive bowel sounds Extremity no clubbing, cyanosis or edema Skin no rashes or lesions noted Neuro CN's II-XII intact bilaterally Lab / Micro Data Result Diagrams: 10/06/20 04:00 10/06/20 04:00 Labs: Laboratory Results - last 24 hr 10/05/20 10/05/20 10/05/20 14:45 14:45 14:45 WBC 8.9 RBC 5.07 Hgb 15.1 H Hct 46.2 MCV 91.1 MCH 29.8 MCHC 32.7 RDW Std Deviation 44.7 H RDW Coeff of Tor 13.2 Plt Count 271 MPV 10.2 Immature Gran % (Auto) 0.700 Neut % (Auto) 80.6 H Lymph % (Auto) 13.0 L [place] % (Auto) 5.4 Eos % (Auto) 0.1 Baso % (Auto) 0.2 Absolute Neuts (auto) 7.2 Absolute Lymphs (auto) 1.15 Nucleated RBC % 0 D-Dimer Quant (PE/DVT) Sodium 137 Potassium 4.3 Chloride 102 Carbon Dioxide 25.0 Anion Gap 10 BUN 43 H Creatinine 1.46 H Estim Creat Clear Calc 29.19 Est GFR (MDRD) Af Amer 45 L Est GFR (MDRD) Non-Af 37 L BUN/Creatinine Ratio 29.5 H Glucose 155 H Hemoglobin A1c Lactic Acid 2.9 H* Calcium 9.4 Magnesium Ferritin Total Bilirubin 0.80 AST 55 H ALT 26 Alkaline Phosphatase 81 Lactate Dehydrogenase Troponin I C-React Prot Ext Range B-Natriuretic Peptide Total Protein 7.2 Albumin 3.0 L Globulin 4.2 Albumin/Globulin Ratio 0.7 L Procalcitonin COVID-19 (EMILY) POC Glucose 10/05/20 10/05/20 10/05/20 14:45 14:45 14:45 WBC RBC Hgb Hct MCV MCH MCHC RDW Std Deviation RDW Coeff of Tor Plt Count MPV Immature Gran % (Auto) Neut % (Auto) Lymph % (Auto) [place] % (Auto) Eos % (Auto) Baso % (Auto) Absolute Neuts (auto) Absolute Lymphs (auto) Nucleated RBC % D-Dimer Quant (PE/DVT) 1.22 H* Sodium Potassium Chloride Carbon Dioxide Anion Gap BUN Creatinine Estim Creat Clear Calc Est GFR (MDRD) Af Amer Est GFR (MDRD) Non-Af BUN/Creatinine Ratio Glucose Hemoglobin A1c Lactic Acid Calcium Magnesium 1.9 Ferritin 1116 H Total Bilirubin AST ALT Alkaline Phosphatase Lactate Dehydrogenase 366 H Troponin I 0.052 H C-React Prot Ext Range 56.00 H B-Natriuretic Peptide Total Protein Albumin Globulin Albumin/Globulin Ratio Procalcitonin 0.13 H COVID-19 (EMILY) POC Glucose 10/05/20 10/05/20 10/05/20 14:45 15:10 19:15 WBC RBC Hgb Hct MCV MCH MCHC RDW Std Deviation RDW Coeff of Tor Plt Count MPV Immature Gran % (Auto) Neut % (Auto) Lymph % (Auto) [place] % (Auto) Eos % (Auto) Baso % (Auto) Absolute Neuts (auto) Absolute Lymphs (auto) Nucleated RBC % D-Dimer Quant (PE/DVT) Sodium Potassium Chloride Carbon Dioxide Anion Gap BUN Creatinine Estim Creat Clear Calc Est GFR (MDRD) Af Amer Est GFR (MDRD) Non-Af BUN/Creatinine Ratio Glucose Hemoglobin A1c Lactic Acid 1.5 Calcium Magnesium Ferritin Total Bilirubin AST ALT Alkaline Phosphatase Lactate Dehydrogenase Troponin I C-React Prot Ext Range B-Natriuretic Peptide 521.6 H Total Protein Albumin Globulin Albumin/Globulin Ratio Procalcitonin COVID-19 (EMILY) Detected POC Glucose 10/05/20 10/06/20 10/06/20 21:39 04:00 04:00 WBC 5.5 RBC 4.81 Hgb 14.5 Hct 43.7 MCV 90.9 MCH 30.1 MCHC 33.2 RDW Std Deviation 44.4 H RDW Coeff of Tor 13.2 Plt Count 250 MPV 10.4 Immature Gran % (Auto) 1.100 H Neut % (Auto) 81.0 H Lymph % (Auto) 13.8 L [place] % (Auto) 3.9 Eos % (Auto) 0.0 Baso % (Auto) 0.2 Absolute Neuts (auto) 4.4 Absolute Lymphs (auto) 0.75 L Nucleated RBC % 0 D-Dimer Quant (PE/DVT) Sodium 138 Potassium 4.0 Chloride 104 Carbon Dioxide 24.0 Anion Gap 10 BUN 46 H Creatinine 1.31 H Estim Creat Clear Calc 29.80 Est GFR (MDRD) Af Amer 51 L Est GFR (MDRD) Non-Af 42 L BUN/Creatinine Ratio 35.1 H Glucose 190 H Hemoglobin A1c Lactic Acid Calcium 8.8 Magnesium Ferritin Total Bilirubin 0.50 AST 40 H ALT 27 Alkaline Phosphatase 77 Lactate Dehydrogenase Troponin I C-React Prot Ext Range B-Natriuretic Peptide Total Protein 6.7 Albumin 2.8 L Globulin 3.9 Albumin/Globulin Ratio 0.7 L Procalcitonin COVID-19 (EMILY) POC Glucose 181 H 10/06/20 10/06/20 10/06/20 04:00 08:55 11:24 WBC RBC Hgb Hct MCV MCH MCHC RDW Std Deviation RDW Coeff of Tor Plt Count MPV Immature Gran % (Auto) Neut % (Auto) Lymph % (Auto) [place] % (Auto) Eos % (Auto) Baso % (Auto) Absolute Neuts (auto) Absolute Lymphs (auto) Nucleated RBC % D-Dimer Quant (PE/DVT) Sodium Potassium Chloride Carbon Dioxide Anion Gap BUN Creatinine Estim Creat Clear Calc Est GFR (MDRD) Af Amer Est GFR (MDRD) Non-Af BUN/Creatinine Ratio Glucose Hemoglobin A1c 5.6 Lactic Acid Calcium Magnesium Ferritin Total Bilirubin AST ALT Alkaline Phosphatase Lactate Dehydrogenase Troponin I C-React Prot Ext Range B-Natriuretic Peptide Total Protein Albumin Globulin Albumin/Globulin Ratio Procalcitonin COVID-19 (EMILY) POC Glucose 157 H 139 H Micro: Microbiology 10/05/20 14:45 Bacteria Detection (PCR) - Final Blood Culture (Wb) - Anticubital Right Coag Negative Staph Blood Culture - Preliminary 10/05/20 23:05 Legionella Antigen - Final Urine, Clean Catch Streptococcus pneumoniae Antigen (M - Final 10/05/20 16:05 Respiratory Panel (PCR) - Final Mucosa - Nasopharyngeal Radiology Impression Chest X-Ray 10/05/20 15:22 IMPRESSION: No acute abnormality is seen. Electronically Signed: Darrel Ohara MD at 15:37 EDT , Service support ,
--- NOTE | 2020-10-06 14:54 | CHAPLAIN ---
Type of Pastoral Visit ___ Initial Visit ___ Follow-up Visit ___ On-call Visit ___ General Patient Visit ___ Spiritual Assessment ___ Family Conference ___ Bereavement ___ Rapid Response ___ Code Blue _x__ Other (describe below) Pastoral Care Referral From _x__ Patient ___ Family ___ Nurse ___ Physician ___ Flanging Machine Operator ___ [employer] ___ Other (describe below) Sacrament/Intervention _x__ Active listening ___ Anointing ___ Hindu ___ Bereavement ___ Communion ___ [place] exploration ___ _x__ Life review _x__ Prayer ___ Reconciliation ___ Sacrament of Sick ___ Supportive presence ___ Wedding ___ Other (describe below) Pastoral Comments phone call made into isolation room; patient answers phone and is able to hold conversation; pt is newly ; pt presents with optimism and welcomes visit and prayer by phone
[2020-10-06 17:46] LABS: Bedside Glucose 169 mg/dL (70-110)
[2020-10-06] MEDS: MELATONIN 3 MG TABLET PO (21:06)
--- NOTE | 2020-10-06 21:25 | NURSING ---
attempted to wean off oxygen. Pt drop to 87% on ra. Pt placed back on 02 at 1lnc
[2020-10-07] VITALS (9 sets, daily range): BP systolic 125–139; BP diastolic 79–95; PULSE 69–96; RESP 18–26; TEMP 35.5–36.9; O2SAT 88–94
[2020-10-07] MEDS: 0.9% Saline Lock 10 ML Syringe IV (02:34)
[2020-10-07 02:49] LABS: Hematocrit 44.3 % (37-47); Hemoglobin 14.4 g/dL (12.0-15.0); Mean Corp Hgb Conc 32.5 g/dL (32-36); Mean Corpuscular Volume 92.3 fL (81-99); Mean Platelet Vol. 10.4 fl (6.2-12.0); Platelet Count 357 K/mm3 (150-450); RBC Distribution Width CV 13.3 % (11.6-14.6); RBC Distribution Width SD 45.5 fl (35.1-43.9); White Blood Count 17.1 K/mm3 (4.4-11.0)
[2020-10-07 02:51] LABS: Bedside Glucose 153 mg/dL (70-110)
[2020-10-07 03:10] LABS: ALB/GLOB Ratio 0.8 RATIO (0.9-2.4); AST(SGOT) 38 U/L (15-37); Alanine Aminotransfer ALT/SGPT 25 U/L (13-56); Albumin, Serum 2.8 g/dL (3.2-5.0); Alkaline Phosphatase 71 U/L (45-117); Anion Gap 10 (5-15); BUN 53 mg/dL (7-18); BUN/Creat Ratio 39.6 RATIO (10-20); Calcium,Total 8.6 mg/dL (8.5-10.1); Chloride 109 mmol/L (98-107); Creatinine, Serum 1.34 mg/dL (0.55-1.02); EST Glomerular Filtration Rate 41 mL/min (>60); Est Glom Filt Rate - Afr Amer 50 mL/min (>60); Estimated Creatinine Clearance 29.13 ml/min; Globulin 3.3 g/dL (2.2-4.2); Glucose 163 mg/dL (74-106); Potassium 4.4 mmol/L (3.5-5.1); Protein, Total 6.1 g/dL (6.4-8.2); Sodium Level 140 mmol/L (136-145)
[2020-10-07] MEDS: 0.9% Normal Saline 1,000 ML 100 ML IV (04:59)
[2020-10-07] MEDS: Insulin Lispro 100 UNIT/ML INSULN.PEN SC ×2 (08:39→12:13)
[2020-10-07] MEDS: dexAMETHasone 10 MG/ML Vial 6 MG IV (08:40)
[2020-10-07] MEDS: Sotalol Hydrochloride 80 MG Tablet PO (08:42)
[2020-10-07] MEDS: APIXABAN 5 MG TABLET PO (08:42)
[2020-10-07] MEDS: dilTIAZem 30 MG Tablet 90 MG PO (08:42)
--- NOTE | 2020-10-07 10:05 | CASEMGMT ---
Addendum entered by Kajal Tomas 10/07/20 13:03: [place] [facility] [place]. TC to Tamela to confirm receipt. Addendum entered by Kajal Tomas 10/07/20 12:38: Spoke with , pt qualifies for home O2 and pt needs FWW. Pt aware O2 will be delivered to the room and to call [employer] once she is home for concentrator to be delivered. Phone number will be on [employer] papers. Pt is declining HHC at this time. She is aware that should she change her mind, she may call her PCP to get HHC set up. Original Note: RN CM in to pt room as therapy recommended additional therapy and a wheeled walker. Patient was provided a list of HHC/ SNF providers including quality and resource use data and consistent with the patient?s preferred geographic region, medical needs, and insurance network. Pt states she definitely does not want to go to a SNF and really doesn't feel like she needs the HHC. Asked pt to review list and think about it and CM will check back with her. Pt is agreeable to having a FWW. Pt lists all of the DME she has in the home that her had that she can use. Will follow for the HHC.
--- NOTE | 2020-10-07 11:46 | PCM.DC.SUM ---
Providers Date of Admission: 10/05/20 Primary Care Physician: Dr. Oneil Warren MD Consultations 10/05/20 21:01 Consult: Infectious Disease Routine Consulting Provider: Isael Nolan Reason for Consult: COVID, Hypoxia EMERGENT Consult: No MD Notified: Yes Date Notified:: 10/06/20 Time Notified: 07:49 Method of Notification: Text Reason For Visit: SEVERE SEPSIS, HYPOXIA, COVID Diagnosis Discharge Diagnosis (1) Pneumonia due to COVID-19 virus: Status: Acute Code(s): U07.1 - COVID-19; J12.82 - Pneumonia due to coronavirus disease 2018 (2) Severe sepsis: Status: Acute Code(s): A41.9 - Sepsis, unspecified organism; R65.20 - Severe sepsis without septic shock (3) Hypoxia: Status: Acute Code(s): R09.02 - Hypoxemia (4) COVID-19: Status: Acute Code(s): U07.1 - COVID-19 (5) Bacteremia: Status: Acute Code(s): R78.81 - Bacteremia Medications at Discharge Home Medications Eliquis 5 mg PO DAILY 10/05/20 clopidogrel 75 mg PO DAILY 10/05/20 cyclobenzaprine 10 mg PO BID PRN 10/05/20 diltiazem HCl 90 mg PO BID 10/05/20 hydrochlorothiazide 25 mg PO DAILY 10/05/20 levothyroxine [Euthyrox] 137 mcg PO DAILY 10/05/20 lisinopril 10 mg PO QHS 10/05/20 simvastatin 20 mg PO QHS 10/05/20 sotalol 80 mg PO BID 10/05/20 dexamethasone [Decadron] 6 mg PO DAILY #8 tab 10/07/20 Hospital Course Operations None Procedures None Summary of Care Provided Minutes Spent on Discharge: 45 Hospital Course: Patient is a 75-year-old female with an extensive past medical history as outlined with a complaint of shortness of breath, cough which has been worsening and a recent diagnosis of Covid with symptoms started about 9 days prior to admission. On admission she was saturating at 88% on room air which improved to 94% on 2 L of oxygen. Labs were essentially unremarkable otherwise. EKG showed atrial flutter which was chronic and chest x-ray showed no acute cardiopulmonary process. She was started on IV Decadron and remdesivir and admitted and managed for acute hypoxic respiratory insufficiency due to COVID-19 infection. Patient gradually improved and shortness of breath improved. She was weaned down to 1 L of oxygen. Patient felt much better. ID was consulted. Patient remained stable and was discharged on 10/07/2020. Ambulatory pulse ox done showed that patient desaturated to 88% on room air and required 2 L of oxygen to up to 92%. He therefore qualified for home oxygen. Patient was therefore discharged with home oxygen and follow-up with her primary care doctor after she is out of isolation. Patient was remain in isolation for total of 20 days starting from 09/25/2020 when his symptoms started, so she remained in isolation till October 15, 2020. Patient counseled that would be advisable for her to get her Covid shot after she was out of isolation. Patient was seen and examined prior to discharge. She had no complaints and felt well. Review of systems otherwise negative. Labs and vitals reviewed. Home medication reviewed and reconciled. Physical Exam Const alert, oriented x3 and no apparent distress General Appearance: cooperative and comfortable Exam Limitations: no limitations HEENT normocephalic, head/scalp atraumatic, hearing grossly normal bilaterally and moist oral mucous membranes Eyes PERRL, EOMs intact bilaterally and conjunctivae normal Neck no lymphadenopathy, supple and no JVD Resp normal respiratory effort Resp Narrative: Mildly diminished breath sounds bibasilarly. No wheezes or crackles. On 1 L of oxygen. Cardio Cardio Narrative: A. fib, HR in the low 100s GI normal to inspection, nondistended, normoactive bowel sounds, soft to palpation, non-tender and non-distended Extremity normal to inspection, full ROM and no clubbing, cyanosis or edema Skin no rashes or lesions noted Neuro oriented x3 Sensorium / Orientation: awake and alert Psych affect normal ABG / Lab / Microbiology Data Result Diagrams: 10/07/20 02:35 10/07/20 02:35 Laboratory: Laboratory Results - last 24 hr 10/06/20 10/06/20 10/07/20 17:08 21:18 02:35 WBC 17.1 H RBC 4.80 Hgb 14.4 Hct 44.3 MCV 92.3 MCH 30.0 MCHC 32.5 RDW Std Deviation 45.5 H RDW Coeff of Tor 13.3 Plt Count 357 MPV 10.4 Sodium Potassium Chloride Carbon Dioxide Anion Gap BUN Creatinine Estim Creat Clear Calc Est GFR (MDRD) Af Amer Est GFR (MDRD) Non-Af BUN/Creatinine Ratio Glucose Calcium Total Bilirubin AST ALT Alkaline Phosphatase Total Protein Albumin Globulin Albumin/Globulin Ratio POC Glucose 169 H 153 H 10/07/20 02:35 WBC RBC Hgb Hct MCV MCH MCHC RDW Std Deviation RDW Coeff of Tor Plt Count MPV Sodium 140 Potassium 4.4 Chloride 109 H Carbon Dioxide 21.0 Anion Gap 10 BUN 53 H Creatinine 1.34 H Estim Creat Clear Calc 29.13 Est GFR (MDRD) Af Amer 50 L Est GFR (MDRD) Non-Af 41 L BUN/Creatinine Ratio 39.6 H Glucose 163 H Calcium 8.6 Total Bilirubin 0.50 AST 38 H ALT 25 Alkaline Phosphatase 71 Total Protein 6.1 L Albumin 2.8 L Globulin 3.3 Albumin/Globulin Ratio 0.8 L POC Glucose Microbiology: Microbiology 10/05/20 14:45 Bacteria Detection (PCR) - Preliminary Blood Culture (Wb) - Anticubital Right Coag Negative Staph Blood Culture - Preliminary Coag Negative Staph Microbiology 10/05/20 14:45 Blood Culture (Wb) - Anticubital Right Bacteria Detection (PCR) - Preliminary Coag Negative Staph 10/05/20 14:45 Blood Culture (Wb) - Anticubital Right Blood Culture - Preliminary Coag Negative Staph 10/05/20 23:05 Urine, Clean Catch Legionella Antigen - Final 10/05/20 23:05 Urine, Clean Catch Streptococcus pneumoniae Antigen (M - Final 10/05/20 16:05 Mucosa - Nasopharyngeal Respiratory Panel (PCR) - Final D/C Instructions Discharge Diet: 2000 mg Sodium Diet Discharge Activity: Return to Normal Activity Weight Bearing Status: Weight bearing as tolerated Call your doctor if you observe: Fever of 101 or Higher, Shortness of breath, Swelling in the ankles, Chest pain and Increased palpitations (irregular heartbeat) Meaningful Use Info Meaningful Use Diagnoses (Choose all that apply): None applicable Discharge Plan Admission Admit Date/Time: 10/05/20 15:48 Primary Reason for Your Visit: COVID 19 infection Attending Provider: Melinda Knapp Primary Care Provider: Oneil Warren Consulting Providers: Isael Nolan Instructions Additional Instructions / Restrictions: use oxygen 2L for shortness of breath as needed. Discharge Orders/Prescriptions Prescriptions: New dexamethasone [Decadron] 6 mg tablet 6 mg PO DAILY Qty: 8 RF: 0 Continued cyclobenzaprine 10 mg tablet 10 mg PO BID PRN (Reason: Spasms) RF: 0 levothyroxine [Euthyrox] 137 mcg tablet 137 mcg PO DAILY RF: 0 sotalol 80 mg tablet 80 mg PO BID RF: 0 clopidogrel 75 mg tablet 75 mg PO DAILY RF: 0 simvastatin 20 mg tablet 20 mg PO QHS RF: 0 lisinopril 10 mg tablet 10 mg PO QHS RF: 0 hydrochlorothiazide 25 mg tablet 25 mg PO DAILY RF: 0 diltiazem HCl 90 mg Tablet 90 mg PO BID RF: 0 Eliquis 5 mg Tablet 5 mg PO DAILY RF: 0 Referrals / Follow Up: Oneil Warren MD [Primary Care Provider] - Within 2 Weeks Disposition Disposition (needs filled in before D/C Order can be placed): Home, self care Visit Charges Inpatient E&M: 12618 Disch Hosp
[2020-10-07 12:25] LABS: Bedside Glucose 226 mg/dL (70-110)
--- NOTE | 2020-10-08 11:48 | CASEMGMT ---
JUAN BHANDARI Discharge Follow Up Phone Call:MIRELLA BULLARD: 5 Strata: 1 Call Date: 10.08.20 Discharge Date: 10.07.20 Time of Call:1144 Duration:3 min Admitting Dx:severe sepsis, covid, hypoxia JUAN BHANDARI completed follow up phone call after recent hospitalization. Pt states she is doing pretty good. States she is using her O2 and is 95% on it. She was able to get her rx prior to leaving the hospital. She is also using her FWW. Pt states her dtr is able to bring her groceries and supplies. Pt was not aware that she was to quarantine. Made pt aware to quarantine for 20 days starting 09/25/20. Pt states her dtr recently had covid and is out of quarantine. Pt states she will get the vaccine as soon as she is able. Pt has no further questions or concerns at this time.
== END 2020-10-07 16:05 | disposition home or self-care (01) | DRG 871 ==
LOC: ED 15:58 → ICU 20:17
PROVIDERS: Internal Medicine Infectious Disease; Admitting Provider Family Medicine; Emergency Provider Emergency Medicine; PCP Family Medicine; Visit Provider Student in an Organized Health Care Education/Training Program
DX: A41.9 Sepsis, unspecified organism (principal); U07.1 COVID-19; J12.82 Pneumonia due to coronavirus disease 2019; I48.92 Unspecified atrial flutter; E44.0 Moderate protein-calorie malnutrition; R65.20 Severe sepsis without septic shock; E03.9 Hypothyroidism, unspecified; E78.5 Hyperlipidemia, unspecified; I25.10 Atherosclerotic heart disease of native coronary artery without angina pectoris; R09.02 Hypoxemia; I48.0 Paroxysmal atrial fibrillation; Z79.01 Long term (current) use of anticoagulants; Z98.61 Coronary angioplasty status; Z86.73 Personal history of transient ischemic attack (TIA), and cerebral infarction without residual deficits; Z90.49 Acquired absence of other specified parts of digestive tract; I12.9 Hypertensive chronic kidney disease with stage 1 through stage 4 chronic kidney disease, or unspecified chronic kidney disease; N18.30 Chronic kidney disease, stage 3 unspecified; R73.9 Hyperglycemia, unspecified; E66.9 Obesity, unspecified; Z68.39 Body mass index [BMI] 39.0-39.9, adult; Z79.890 Hormone replacement therapy
CPT/HCPCS: 71045; 80053; 82728; 82962; 83036; 83605; 83615; 83735; 83880; 84145; 84484; 85025; 85027; 85379; 86140; 87040; 87149; 87449; 87633; 87635; 93005; 97162; 97166; 97802; 99251; 99285; J7030; J7050; U0005; A4216; G0463; U0003

== ENCOUNTER 2020-10-17 16:10 | Inpatient (IN) | payer MEDICARE, SELFPAY ==
[2020-10-06 10:07] VITALS: BMI 39.2
[2020-10-17] VITALS (7 sets, daily range): BP systolic 118–137; BP diastolic 52–70; PULSE 100–129; RESP 16–18; TEMP 36.6–37.1; O2SAT 91–97; BMI 37.7; BMI 36.2
--- NOTE | 2020-10-17 16:38 | EKG12_ITS ---
Test Reason : WEAKNESS Blood Pressure : / mmHG Vent. Rate : 097 BPM Atrial Rate : 097 BPM P-R Int : 204 ms QRS Dur : 078 ms QT Int : 242 ms P-R-T Axes : 069 039 -74 degrees QTc Int : 307 ms Atrial fibrillation Nonspecific ST and T wave abnormality Abnormal ECG Confirmed by CRISSY CONNER, JESSICA ([id number]), industrial editor HELENA MORALES ([id number]) on 10/21/2020 9:44:05 AM Referred By: MR Confirmed By:JESSICA WOODWARD MD
--- NOTE | 2020-10-17 16:54 | EDS_ITS ---
HPI History of Present Illness Chief Complaint: Weakness Narrative Narrative: Patient presenting for evaluation secondary to generalized weakness. Patient has a underlying history of heart disease, A. fib, hypertension, hyperlipidemia. Patient had a recent diagnosis of coronavirus on 25 September. This does result in a 3-day hospital stay. Patient states that since then she was discharged home with 1 L of oxygen. She lives alone. Patient states that more recently in the last couple of days however she has been having increasing leg weakness to the point where it yesterday and today she could not even get herself off of the toilet and had to call the paramedics. Patient states that this is a generalized weakness, its not lateralizing. Is not associated with any sort of numbness. Patient denies any new infectious signs or symptoms such as fever cough nausea vomiting or diarrhea. She denies any chest pain. Patient is presenting by EMS stating that she feels that she may potentially need to be placed in rehab for period of time as she lives alone and has concern for her s afety. [facility] Medical History Afib CAD (coronary artery disease) (~12/06/19) HLD (hyperlipidemia) Hypertension Hypothyroidism Stroke/cerebrovascular accident Home Medications Eliquis 5 mg PO DAILY 10/05/20 [History Last Taken 10/05/20] clopidogrel 75 mg PO DAILY 10/05/20 [History Last Taken 10/05/20] cyclobenzaprine 10 mg PO BID PRN 10/05/20 [History Last Taken Unknown] diltiazem HCl 90 mg PO BID 10/05/20 [History Last Taken 10/05/20] hydrochlorothiazide 25 mg PO DAILY 10/05/20 [History Last Taken Unknown] levothyroxine [Euthyrox] 137 mcg PO DAILY 10/05/20 [History Last Taken 10/05/20] lisinopril 10 mg PO QHS 10/05/20 [History Last Taken 10/04/20] simvastatin 20 mg PO QHS 10/05/20 [History Last Taken 10/04/20] sotalol 80 mg PO BID 10/05/20 [History Last Taken 10/05/20] dexamethasone [Decadron] 6 mg PO DAILY #8 tab 10/07/20 [Rx Last Taken Unknown] Allergy/AdvReac Type Severity Reaction Status Date / Time No Known Allergies Allergy Verified 10/17/20 16:10 Family History Mother Heart disease Myocardial infarction Father Dementia in Alzheimer's disease Surgical History Hx of cholecystectomy Hx of heart artery stent Social History household members: none Smoking Status: Never smoker alcohol intake: never substance use type: does not use ROS ROS ED Constitutional Constitutional ED: Reports other Details: Positive for generalized weakness ; Denies chills or fever(s) ENT ENT ED: Denies rhinorrhea Cardiovascular Cardiovascular: Denies chest pain Respiratory/Chest Respiratory/Chest: Denies cough or dyspnea Gastrointestinal Gastrointestinal: Denies abdominal pain, diarrhea, nausea or vomiting Genitourinary Genitourinary ED: Denies dysuria or hematuria Musculoskeletal Musculoskeletal: Denies back pain Integumentary Denies rash Neurologic Neurologic: Denies paresthesias or weakness Psychiatric Psychiatric: Denies depression Endocrine Endocrinology: Denies fatigue Allergic/Immunologic Allergic/Immunologic ED: Denies urticaria EXAM Physical Exam Const Vital Signs: 10/17/20 16:10 10/17/20 16:54 Temperature 97.8 F Temperature Source Temporal Pulse Rate 129 H Respiratory Rate 16 Respiratory Effort Normal Non-Labored Respiratory Pattern Normal Blood Pressure 118/70 Blood Pressure Mean 86 Pulse Ox 91 Oxygen Delivery Method Room Air Positive well nourished and well developed General Appearance ED: well developed and NAD HEENT Reports moist mucous membranes Negative for trauma or tenderness Eyes EOMs intact bilaterally Neck no lymphadenopathy, supple and no JVD Chest Wall inspection of chest normal Resp normal respiratory effort Resp Narrative: Rales in the bases bilaterally Auscultation: rales Cardio no murmurs and peripheral pulses 2+ throughout Rate: other Other Details: Minimally tachycardic and irregular, 2+ radial pulses. GI normal to inspection, nondistended, normoactive bowel sounds, non-tender and no masses Palpation: soft Back/Spine normal to inspection Extremity normal to inspection Extremity Narrative: Trace pitting edema of the lower extremities bilaterally symmetric General Extremety ED: Negative for tenderness Neuro oriented x3 and no sensory deficits noted Sensorium / Orientation: alert Motor Exam: strength 5/5 throughout Psych mental status grossly normal Skin no rashes or lesions noted MDM MDM MDM Narrative Medical decision making narrative: Patient presented secondary to generalized weakness. She was noted to be somewhat tachycardic and to have rales in the bases work-up was obtained. Patient had extremely variable heart rate going from the 90s up to the 120s. Patient has a new onset of a significant leukocytosis of 27,000. Patient does not have an elevated anion gap, creatinine is normal. Patient's chest x-ray by my personal review as well as radiology demonstrates new onset of a left upper lobe infiltrate likely indicative of a pneumonia. Patient was recently admitted to the hospital this will be treated as if it is healthcare associated with vancomycin and Zosyn. Patient will be admitted under the hospitalist. Lab Data Labs: Laboratory Results - last 24 hr 10/17/20 10/17/20 16:57 16:57 WBC 27.2 H RBC 4.47 Hgb 13.3 Hct 40.8 MCV 91.3 MCH 29.8 MCHC 32.6 RDW Std Deviation 45.4 H RDW Coeff of Tor 13.4 Plt Count 335 MPV 9.3 Immature Gran % (Auto) 2.400 H Neut % (Auto) 86.2 H Lymph % (Auto) 5.9 L [place] % (Auto) 5.1 Eos % (Auto) 0.0 Baso % (Auto) 0.4 Absolute Neuts (auto) 23.5 H Absolute Lymphs (auto) 1.62 Nucleated RBC % 0 Differential Comment SCANNED Sodium 138 Potassium 4.3 Chloride 104 Carbon Dioxide 26.0 Anion Gap 8 BUN 25 H Creatinine 0.96 Estim Creat Clear Calc 42.53 Est GFR (MDRD) Af Amer 73 Est GFR (MDRD) Non-Af 61 BUN/Creatinine Ratio 26.1 H Glucose 123 H Calcium 8.2 L Radiography Chest X-Ray - ED: 1 View, Read by ED Physician and Left Infiltrate Diagnostic Testing: Radiology Impression Chest X-Ray 10/17/20 17:10 IMPRESSION: Left upper lobe infiltrate suggesting pneumonia. Electronically Signed: Zeferino Li MD ([place]) at 17:19 EDT , Service support , EKG Initial EKG: Attestation: I personally reviewed and interpreted this EKG as follows: (Atrial fibrillation with a ventricular rate of 97, no evidence of significant ST segment deviation, diffuse flattened T waves nonanatomic.) Discharge Plan Triage Chief Complaint: Weakness ED Provider: Favian Thrasher Dx/Rx/DC Orders Clinical Impression: Pneumonia, Sepsis Prescriptions: No Action cyclobenzaprine 10 mg tablet 10 mg PO BID PRN (Reason: Spasms) RF: 0 levothyroxine [Euthyrox] 137 mcg tablet 137 mcg PO DAILY RF: 0 sotalol 80 mg tablet 80 mg PO BID RF: 0 clopidogrel 75 mg tablet 75 mg PO DAILY RF: 0 simvastatin 20 mg tablet 20 mg PO QHS RF: 0 lisinopril 10 mg tablet 10 mg PO QHS RF: 0 hydrochlorothiazide 25 mg tablet 25 mg PO DAILY RF: 0 diltiazem HCl 90 mg Tablet 90 mg PO BID RF: 0 Eliquis 5 mg Tablet 5 mg PO DAILY RF: 0 dexamethasone [Decadron] 6 mg tablet 6 mg PO DAILY Qty: 8 RF: 0 Primary Care Provider: Oneil Warren Referrals: Oneil Warren MD [Primary Care Provider] - Disposition Disposition: Acute Care Hospital [facility]
[2020-10-17 17:05] LABS: Absolute Lymphocyte Count 1.62 X10^3/uL (0.83-4.51); Absolute Neutrophil Count 23.5 X10^3/uL (2.0-7.7); Basophil% 0.4 % (0-1); Hematocrit 40.8 % (37-47); Hemoglobin 13.3 g/dL (12.0-15.0); Lymphocyte # 1.62 X10^3/ul (0.83-4.51); Lymphocyte % 5.9 % (19-41); Mean Corp Hgb Conc 32.6 g/dL (32-36); Mean Corpuscular Hgb 29.8 pg (27.0-32.0); Mean Corpuscular Volume 91.3 fL (81-99); Mean Platelet Vol. 9.3 fl (6.2-12.0); Monocyte# 1.38 X10^3/uL; Monocyte% 5.1 % (0-10); NRBC Flagged by Analyzer 0 % (0-5); Neutrophil # 23.48 X10^3/uL (2.7-7.7); Neutrophil % 86.2 % (47-70); POSITIVE DIFFERENTIAL YES; Platelet Count 335 K/mm3 (150-450); RBC Distribution Width CV 13.4 % (11.6-14.6); RBC Distribution Width SD 45.4 fl (35.1-43.9); Red Blood Count 4.47 M/mm3 (4.2-5.4); White Blood Count 27.2 K/mm3 (4.4-11.0)
--- NOTE | 2020-10-17 17:10 | RAD_ITS ---
STUDY: X-RAY CHEST REASON FOR EXAM: Female, 75 years old. Rales TECHNIQUE: AP COMPARISON: 10/05/2020 FINDINGS: EKG leads project over the chest. Interval development of patchy parenchymal infiltrate in the left upper lobe. There is no demonstrated pleural abnormality. Normal size heart. Normal mediastinum and lashawn. Normal visualized pulmonary arteries. There is atherosclerotic tortuosity of the aortic arch and descending thoracic aorta. No acute bony process. There is no demonstrated abnormality of the visualized soft tissue structures of the upper abdomen. RAD/Chest PA and Lateral IMPRESSION: Left upper lobe infiltrate suggesting pneumonia. Electronically Signed: Zeferino Li MD ([place]) at 17:19 EDT , Service support ,
[2020-10-17 17:12] LABS: Differential Indicated SCAN CRITERIA MET
[2020-10-17 17:23] LABS: Anion Gap 8 (5-15); BUN 25 mg/dL (7-18); BUN/Creat Ratio 26.1 RATIO (10-20); Calcium,Total 8.2 mg/dL (8.5-10.1); Chloride 104 mmol/L (98-107); Creatinine, Serum 0.96 mg/dL (0.55-1.02); EST Glomerular Filtration Rate 61 mL/min (>60); Est Glom Filt Rate - Afr Amer 73 mL/min (>60); Estimated Creatinine Clearance 42.53 ml/min; Glucose 123 mg/dL (74-106); Potassium 4.3 mmol/L (3.5-5.1); Sodium Level 138 mmol/L (136-145)
[2020-10-17 17:30] LABS: Differential Comment SCANNED
[2020-10-17 19:22] LABS: Lactic Acid 1.8 mmol/L (0.4-1.9)
--- NOTE | 2020-10-17 19:58 | PCM.HP.STD ---
HPI - General General Date of Admission: 10/17/20 HPI Narrative DARRELL PALACIOS, is a 75 F who presented to the emergency department [facility] on 10/17/2020 with a chief complaint of generalized weakness. She was diagnosed with coronavirus on September 25, 2020 and had a 3-day hospital stay from October 05 until October 08. At that time she was discharged home with 1 L of oxygen via nasal cannula. She lives alone with her dog and reports on presentation that she has been having increased leg weakness to the point where she was not able to get herself up off the toilet and had to call the paramedics. She has no focal deficits. She denies any fever, cough, nausea, vomiting, diarrhea, chest pain, shortness of breath, or significant pain. Her biggest concern is that she lives alone is having increased difficulty in taking care of her self. Her vital signs were overall unremarkable in the emergency department she had an oxygen saturation of 96 to 97% on room air. She was discharged on Decadron and completed that course on 10/15/2020. Her CBC shows a markedly elevated white count at 27.2 with a left shift. Her BMP is unremarkable. Her EKG shows no signs of acute ST-T wave changes. Her chest x-ray is suggestive of a left upper lobe infiltrate that is new when compared to previous chest x-ray on 10/05/2020. Given her recent hospitalization she was treated with Vanco and Zosyn in the emergency department and will be admitted to [facility] for further treatment. She is aware she will likely need placement at discharge and is willing to go for acute rehab. [facility] Medical History Afib CAD (coronary artery disease) (~12/06/19) HLD (hyperlipidemia) Hypertension Hypothyroidism Non-smoker Stroke/cerebrovascular accident Home Medications Eliquis 5 mg PO DAILY 10/05/20 [History Last Taken 10/05/20] clopidogrel 75 mg PO DAILY 10/05/20 [History Last Taken 10/05/20] cyclobenzaprine 10 mg PO BID PRN 10/05/20 [History Last Taken Unknown] diltiazem HCl 90 mg PO BID 10/05/20 [History Last Taken 10/05/20] hydrochlorothiazide 25 mg PO DAILY 10/05/20 [History Last Taken Unknown] levothyroxine [Euthyrox] 137 mcg PO DAILY 10/05/20 [History Last Taken 10/05/20] lisinopril 10 mg PO QHS 10/05/20 [History Last Taken 10/04/20] simvastatin 20 mg PO QHS 10/05/20 [History Last Taken 10/04/20] sotalol 80 mg PO BID 10/05/20 [History Last Taken 10/05/20] dexamethasone [Decadron] 6 mg PO DAILY #8 tab 10/07/20 [Rx Last Taken Unknown] Allergy/AdvReac Type Severity Reaction Status Date / Time No Known Allergies Allergy Verified 10/17/20 16:10 Family History Mother Heart disease Myocardial infarction Father Dementia in Alzheimer's disease Surgical History Hx of cholecystectomy Hx of heart artery stent Social History household members: none Smoking Status: Never smoker alcohol intake: never substance use type: does not use ROS Review of Systems ROS Unobtainable: Denies due to encephalopathy, due to endotracheal tube, due to mental condition, due to mental status or other Constitutional Constitutional: Denies anorexia, change in weight, chills, fatigue, fever(s), malaise, night sweats, weakness or other Eyes Eyes: Denies blurry vision, change in eye color, change in vision, discharge from eye(s), double vision, erythema, eye pain, loss of vision or other ENT HEENT: Denies abnormal hearing, dysphagia, ear pain, epistaxis, headache(s), hearing loss, nasal congestion, nasal discharge, post nasal drip, sinus pressure, sore throat or other Cardiovascular Cardiovascular: Denies chest pain, claudication, dyspnea on exertion, edema, lightheadedness, orthopnea, palpitations, paroxysmal nocturnal dyspnea, rapid heart rate, syncope or other Respiratory/Chest Respiratory/Chest: Reports cough; Denies dyspnea, excessive phlegm production, hemoptysis, productive cough, shortness of breath at rest, shortness of breath with exertion, wheezing or other Gastrointestinal Gastrointestinal: Denies abdominal pain, coffee ground emesis, constipation, diarrhea, dyspepsia, hematemesis, hematochezia, loose stools, melena, nausea, vomiting or other Genitourinary Genitourinary: Denies burning urination, difficulty urinating, dysuria, hematuria, nocturia, urinary frequency, urinary hesitancy, urinary incontinence, urinary urgency or other Musculoskeletal Musculoskeletal: Reports arthralgias, joint pain and other Details: Generalized weakness ; Denies back pain, joint stiffness, joint swelling, myalgias or neck pain Neurologic Neurologic: Denies abnormal gait, abnormal speech, confusion, disequilibrium, dizziness, focal weakness, headache(s), numbness, paresthesias, seizure-like activity, seizures, syncope, tingling, tremor(s) or other Psychiatric Psychiatric: Denies anxiety, depression, homicidal ideation, suicidal ideation or other Endocrine Endocrinology: Denies change in body appearance, cold intolerance, excessive sweating, heat intolerance, polydipsia, polyuria or other Hematologic/Lymphatic Hematologic/Lymphatic: Denies anemia, easy bleeding, easy bruising, lymphadenopathy or other Allergic/Immunologic Allergic/Immunologic: Denies rhinitis, hives, eczemia, asthma or other Vital Signs Vital Signs Vital Signs: 10/17/20 16:10 10/17/20 16:54 10/17/20 18:30 Temperature 97.8 F Temperature Source Temporal Pulse Rate 129 H 100 Respiratory Rate 16 17 Respiratory Effort Normal Non-Labored Respiratory Pattern Normal Blood Pressure 118/70 121/53 H Blood Pressure Mean 86 75 Blood Pressure Source Blood Pressure Position Blood Pressure Location Pulse Ox 91 96 Oxygen Delivery Method Room Air Room Air 10/17/20 18:57 10/17/20 19:49 Temperature 97.8 F 98.8 F Temperature Source Temporal Oral Pulse Rate 100 52 L Respiratory Rate 17 18 Respiratory Effort Respiratory Pattern Blood Pressure 121/53 H 137/52 H Blood Pressure Mean 75 80 Blood Pressure Source Monitor Blood Pressure Position Semi-Fowlers Blood Pressure Location Right Arm Pulse Ox 96 97 Oxygen Delivery Method Room Air Room Air Weight Weight: 95.7 kg Body Mass Index (BMI) 36.2 Physical Exam Const alert, oriented x3, no apparent distress, healthy appearing and well nourished; Negative for average body habitus Constitutional Narrative: Overweight white female, sitting up in bed, appears comfortable, nontoxic appearing General Appearance: cooperative; Negative for uncooperative Orientation / Consciousness: Negative for confused, disoriented or lethargic HEENT normocephalic, head/scalp atraumatic, hearing grossly normal bilaterally, moist oral mucous membranes and oropharynx normal HEENT Narrative: Mallampati 2, no thrush Mouth: oral and palatal mucosa normal Eyes PERRL, EOMs intact bilaterally and conjunctivae normal Neck no lymphadenopathy, supple, no JVD and no carotid bruits Resp normal respiratory effort, no retractions, no use of accessory muscles and clear to auscultation bilaterally Resp Narrative: Diminished left upper lobe but otherwise clear Auscultation: Negative for crackles, rales, rhonchi or wheezes Cardio regular rate, S1 normal heart sound, S2 normal heart sound, no murmurs, no rub, no gallops, no clicks and no JVD Cardio Narrative: Irregular rhythm GI normal to inspection, nondistended, normoactive bowel sounds, soft to palpation, non-tender and non-distended Extremity normal to inspection, full ROM and no clubbing, cyanosis or edema Peripheral Pulses: Yes pulses 2+ throughout Skin no rashes or lesions noted, no wounds, skin turgor normal, no jaundice, no petechiae and no mottling Neuro oriented x3, CN's II-XII intact bilaterally and no focal motor deficits Sensorium / Orientation: awake, alert, oriented to person, oriented to place and oriented to time Speech: speech normal Psych affect normal Results Lab / Micro Data Attestation: I reviewed the patient's lab results. Result Diagrams: 10/17/20 16:57 10/17/20 16:57 Labs: Laboratory Results - last 24 hr 10/17/20 10/17/20 10/17/20 16:57 16:57 18:40 WBC 27.2 H RBC 4.47 Hgb 13.3 Hct 40.8 MCV 91.3 MCH 29.8 MCHC 32.6 RDW Std Deviation 45.4 H RDW Coeff of Tor 13.4 Plt Count 335 MPV 9.3 Immature Gran % (Auto) 2.400 H Neut % (Auto) 86.2 H Lymph % (Auto) 5.9 L [place] % (Auto) 5.1 Eos % (Auto) 0.0 Baso % (Auto) 0.4 Absolute Neuts (auto) 23.5 H Absolute Lymphs (auto) 1.62 Nucleated RBC % 0 Differential Comment SCANNED Sodium 138 Potassium 4.3 Chloride 104 Carbon Dioxide 26.0 Anion Gap 8 BUN 25 H Creatinine 0.96 Estim Creat Clear Calc 42.53 Est GFR (MDRD) Af Amer 73 Est GFR (MDRD) Non-Af 61 BUN/Creatinine Ratio 26.1 H Glucose 123 H Lactic Acid 1.8 Calcium 8.2 L Radiology Impression Chest X-Ray 10/17/20 17:10 IMPRESSION: Left upper lobe infiltrate suggesting pneumonia. Electronically Signed: Zeferino Li MD (Brooks) at 17:19 EDT , Service support , Assessment & Plan Assessment/Plan (1) Pneumonia: (2) Leukocytosis: (3) Generalized weakness: PLAN: Left upper lobe pneumonia -Zosyn and Vanco start since she is had a recent hospitalization -MRSA PCR -Sputum culture if able -Incentive spirometer -Supplemental O2 as needed Generalized weakness -PT/OT consultation -Patient will likely need placement at discharge for further rehab -Patient does live alone Marked leukocytosis -Concerning for acute infection -Patient has also been on Decadron which was completed on 10/15/2020 -Continue to monitor CAD/hypertension/hyperlipidemia -Continue lisinopril 10 mg -Continue simvastatin 20 mg -Continue hydrochlorothiazide 25 mg -Continue Plavix 75 mg PAF -Continue sotalol -Continue diltiazem -Continue Eliquis Levothyroxine -Continue thyroid supplementation History of stroke -No marked residual deficits -Continue therapy as described above DVT prophylaxis -NOAC CODE STATUS -Full code Charges/Coding Visit Charges Inpatient E&M: 08457 Init Hosp L3
--- NOTE | 2020-10-17 21:10 | PCM.RX.CS ---
Consult Pharmacy has been consulted to manage selected antiobiotic: Vancomycin Type of Consult: New start Suspected Infection: Pneumonia Prior Doses of Antibiotics Received/Current Regimen: Medications Vancomycin HCl 750 mg/ Sodium (Chloride) 265 mls @ 250 mls/hr IV Q12H [place] Discontinued Medications Vancomycin HCl 1,500 mg/ (Sodium Chloride) 530 mls @ 250 mls/hr IV X1 ONE Stop: 10/17/20 21:07 Last Admin: 10/17/20 20:41 Dose: 250 mls/hr Labs: Sodium 138 mmol/L (136-145) 10/17/20 16:57 Potassium 4.3 mmol/L (3.5-5.1) 10/17/20 16:57 Chloride 104 mmol/L (98-107) 10/17/20 16:57 Carbon Dioxide 26.0 mmol/L (21.0-32.0) 10/17/20 16:57 Anion Gap 8 (5-15) 10/17/20 16:57 BUN 25 mg/dL (7-18) H 10/17/20 16:57 Creatinine 0.96 mg/dL (0.55-1.02) 10/17/20 16:57 Est GFR (MDRD) Af Amer 73 mL/min (>60) 10/17/20 16:57 Est GFR (MDRD) Non-Af 61 mL/min (>60) 10/17/20 16:57 BUN/Creatinine Ratio 26.1 RATIO (10-20) H 10/17/20 16:57 Glucose 123 mg/dL (74-106) H 10/17/20 16:57 Weight used for dosin.7 kg Estimated Creatinine Clearance: 42.5 Goal Trough: 15-20 mcg/mL Pharmacy Plan for Drug Dosing: Pharmacy Service will continue to monitor and adjust dosing as required. Follow-Up Labs: Trough Vancomycin Labs to be done on [date and time ordered]: 10/19/20 @0800
[2020-10-17] MEDS: dilTIAZem 30 MG Tablet 90 MG PO (21:27)
[2020-10-17] MEDS: Sotalol Hydrochloride 80 MG Tablet PO (21:27)
[2020-10-17] MEDS: Lisinopril 10 MG Tablet PO (21:28)
[2020-10-17 22:54] LABS: M R Staph aureus DNA By PCR Negative (Negative); Probe Check PASS; Specimen Processing Control PASS
[2020-10-18] VITALS (10 sets, daily range): BP systolic 113–163; BP diastolic 55–67; PULSE 89–115; RESP 16–18; TEMP 36.1–36.8; O2SAT 95–98
[2020-10-18] MEDS: Levothyroxine 137 MCG Tablet PO (05:03)
[2020-10-18 05:47] LABS: Absolute Lymphocyte Count 1.45 X10^3/uL (0.83-4.51); Absolute Neutrophil Count 15.4 X10^3/uL (2.0-7.7); Basophil# 0.07 X10^3/uL; Basophil% 0.4 % (0-1); Eosinophil# 0.02 X10^3/uL; Eosinophils% 0.1 % (0-5); Hematocrit 40.3 % (37-47); Hemoglobin 12.1 g/dL (12.0-15.0); Lymphocyte # 1.45 X10^3/ul (0.83-4.51); Lymphocyte % 7.9 % (19-41); Mean Corpuscular Hgb 29.8 pg (27.0-32.0); Mean Corpuscular Volume 99.3 fL (81-99); Mean Platelet Vol. 9.7 fl (6.2-12.0); Monocyte% 5.5 % (0-10); NRBC Flagged by Analyzer 0 % (0-5); Neutrophil # 15.38 X10^3/uL (2.7-7.7); Neutrophil % 84.2 % (47-70); Platelet Count 213 K/mm3 (150-450); RBC Distribution Width CV 13.7 % (11.6-14.6); RBC Distribution Width SD 49.7 fl (35.1-43.9); Red Blood Count 4.06 M/mm3 (4.2-5.4); White Blood Count 18.3 K/mm3 (4.4-11.0)
[2020-10-18 06:18] LABS: Anion Gap 6 (5-15); BUN 20 mg/dL (7-18); BUN/Creat Ratio 25.8 RATIO (10-20); Calcium,Total 7.7 mg/dL (8.5-10.1); Chloride 106 mmol/L (98-107); Creatinine, Serum 0.78 mg/dL (0.55-1.02); EST Glomerular Filtration Rate 77 mL/min (>60); Est Glom Filt Rate - Afr Amer 93 mL/min (>60); Estimated Creatinine Clearance 42.62 ml/min; Glucose 116 mg/dL (74-106); Phosphorus 2.7 mg/dL (2.5-4.9); Potassium 3.9 mmol/L (3.5-5.1); Sodium Level 135 mmol/L (136-145)
[2020-10-18] MEDS: dilTIAZem 30 MG Tablet 90 MG PO ×2 (08:36→20:50)
[2020-10-18] MEDS: Sotalol Hydrochloride 80 MG Tablet PO ×2 (08:36→20:50)
[2020-10-18] MEDS: Clopidogrel Bisulfate 75 MG Tablet PO (08:37)
[2020-10-18] MEDS: APIXABAN 5 MG TABLET PO (08:37)
--- NOTE | 2020-10-18 12:10 | PCM.PN.HOSP ---
Documented by User: Kali RIBERA 10/18/20 12:24 Subjective Subjective Patient is a 75-year-old female comfortably resting in bed, alert and oriented x3. Denies chest pain, shortness of breath, palpitations, sputum production, hemoptysis, fever, chills, N/V/D. Objective Data Objective Data Vital Signs: Vital Signs Temp Pulse Resp BP Pulse Ox 98.3 F 111 H 16 121/66 H 95 10/18/20 08:29 10/18/20 11:02 10/18/20 08:29 10/18/20 08:29 10/18/20 08:29 Oxygen Delivery Method Room Air Weight: 210 lb 12.191 oz Body Mass Index (BMI) 36.2 Intake & Output: Intake and Output for Last 24 Hours 10/16/20 10/17/20 10/18/20 23:59 23:59 23:59 Intake Total 580 / 930 885 / 885 Balance 580 / 930 885 / 885 Lab / Micro Data Result Diagrams: 10/18/20 05:30 10/18/20 05:30 Labs: Laboratory Results - last 24 hr 10/17/20 10/17/20 10/17/20 16:57 16:57 18:40 WBC 27.2 H RBC 4.47 Hgb 13.3 Hct 40.8 MCV 91.3 MCH 29.8 MCHC 32.6 RDW Std Deviation 45.4 H RDW Coeff of Tor 13.4 Plt Count 335 MPV 9.3 Immature Gran % (Auto) 2.400 H Neut % (Auto) 86.2 H Lymph % (Auto) 5.9 L [place] % (Auto) 5.1 Eos % (Auto) 0.0 Baso % (Auto) 0.4 Absolute Neuts (auto) 23.5 H Absolute Lymphs (auto) 1.62 Nucleated RBC % 0 Differential Comment SCANNED Sodium 138 Potassium 4.3 Chloride 104 Carbon Dioxide 26.0 Anion Gap 8 BUN 25 H Creatinine 0.96 Estim Creat Clear Calc 42.53 Est GFR (MDRD) Af Amer 73 Est GFR (MDRD) Non-Af 61 BUN/Creatinine Ratio 26.1 H Glucose 123 H Lactic Acid 1.8 Calcium 8.2 L Phosphorus Magnesium MRSA (PCR) 10/17/20 10/18/20 10/18/20 20:10 05:30 05:30 WBC 18.3 H RBC 4.06 L Hgb 12.1 Hct 40.3 MCV 99.3 H D MCH 29.8 MCHC 30.0 L D RDW Std Deviation 49.7 H RDW Coeff of Tor 13.7 Plt Count 213 MPV 9.7 Immature Gran % (Auto) 1.900 H Neut % (Auto) 84.2 H Lymph % (Auto) 7.9 L [place] % (Auto) 5.5 Eos % (Auto) 0.1 Baso % (Auto) 0.4 Absolute Neuts (auto) 15.4 H Absolute Lymphs (auto) 1.45 Nucleated RBC % 0 Differential Comment Sodium 135 L Potassium 3.9 Chloride 106 Carbon Dioxide 23.0 Anion Gap 6 BUN 20 H Creatinine 0.78 Estim Creat Clear Calc 42.62 Est GFR (MDRD) Af Amer 93 Est GFR (MDRD) Non-Af 77 BUN/Creatinine Ratio 25.8 H Glucose 116 H Lactic Acid Calcium 7.7 L Phosphorus 2.7 Magnesium 2.0 MRSA (PCR) Negative Micro: Microbiology 10/18/20 00:30 Urine, Clean Catch Legionella Antigen - Final 10/18/20 00:30 Urine, Clean Catch Streptococcus pneumoniae Antigen (M - Final Radiography Diagnostic Testing: Radiology Impression Chest X-Ray 10/17/20 17:10 IMPRESSION: Left upper lobe infiltrate suggesting pneumonia. Electronically Signed: Zeferino Li MD (Brooks) at 17:19 EDT , Service support , Physical Exam Const alert, oriented x3 and no apparent distress HEENT head/scalp atraumatic Head and Scalp: normocephalic Eyes PERRL, EOMs intact bilaterally and conjunctivae normal Neck no lymphadenopathy, supple and no JVD Resp normal respiratory effort, no retractions and no use of accessory muscles Cardio regular rate, regular rhythm, no murmurs and no JVD GI normal to inspection, nondistended, normoactive bowel sounds and soft to palpation Extremity normal to inspection, full ROM and no clubbing, cyanosis or edema Skin no rashes or lesions noted Neuro CN's II-XII intact bilaterally Psych affect normal Assessment & Plan Assessment/Plan (1) Pneumonia: (2) Leukocytosis: (3) Generalized weakness: PLAN: See subjective for patient presentation. Discharge planning: Social work court date with family about SNF placement options. 1) left upper lobe pneumonia Vital signs stable and patient is afebrile. Currently satting 95% on room air. Elevated leukocytosis with WBCs at 18,000 with neutrophilic predominance, down from admission. Patient was diagnosed with coronavirus at the end of September and had a 3-day hospital stay in early October. Decadron for COVID-19 was completed on 10/15/2020. Legionella and strep pneumo PCR negative. Blood cultures pending. Plan; continue vancomycin and Zosyn, continue supplemental oxygen, incentive spirometry encouraged. 2) generalized weakness PT/OT/case management following. Plan; discharge plan is for patient to go to SNF for further rehab. 3) paroxysmal A. fib Stable. On diltiazem and sotalol for rate control and Eliquis for anticoagulation. Plan; continue Eliquis, sotalol and diltiazem. 4) CAD Continue Plavix. 5) hypertension Stable. Continue lisinopril and hydrochlorothiazide. 6) hyperlipidemia Continue statin. 7) hypothyroidism Continue levothyroxine. DVT prophylaxis - Eliquis Patient seen by Kali Mchugh PA-C, under the supervision of Dr. Wilson. Documented by User: Dr. Bari Wilson MD 10/18/20 16:54 Subjective Subjective The patient was admitted for generalized weakness. Had recent Covid infection and was sick for 3 weeks and 3-day hospital stay in September 25, 2020. Patient has mild shortness of breath on exertion but denies fever, cough, nausea, vomiting or other Covid related symptoms. Objective Data Lab / Micro Data Result Diagrams: 10/18/20 05:30 10/18/20 05:30 Physical Exam Narrative General: Alert, Oriented x3, Cooperative HEENT: Atraumatic, PERRLA, EOMI, Normocephalic Oral: No Gingival or Mucosal Lesions/ Ulcerations Neck: Supple, No JVD, Negative Carotid Bruits Lungs: Air entry diminished in bilateral lung bases. No crepitation/rhonchi Cardiovascular: quality assurance monitor chassis A. fib, irregular heartbeat, normal S1, Normal S2, No murmurs Abdomen: Bowel Sounds Present, Soft, Non Tender, Non-Distended : No renal angle tenderness. No suprapubic tenderness. Extremities: No edema, Capillary Refill Less than 3 Seconds Skin: No rashes, No breakdown Musculoskeletal: No Tenderness to Palpation of Joints or Extremities. Bilateral lower legs mild weakness. Neurological: Cranial nerves II-XII grossly intact, Deep Tendon Reflexes 2+/4 Psych/Mental Status: Normal Affect, Appropriate. Assessment & Plan Assessment/Plan (1) Pneumonia: (2) Generalized weakness: PLAN: This patient was seen in conjunction with MOUNIKA Malagon. I have independently interviewed and examined the patient and reviewed pertinent history, examination findings, laboratory and plan of management. I have reviewed the note and agree with the documented findings with the few additional points. In brief, patient is admitted for generalized weakness and was found new left upper lobe infiltrate, not present in previous x-ray. Patient is on IV mycin and Zosyn for suspected nosocomial pneumonia. Generalized weakness. PT and OT consulted. Patient has leukocytosis which may be misleading secondary to Decadron 10/15. She has history of paroxysmal A. fib, coronary artery disease and hypertension and other comorbidities as mentioned above I have discussed my assessment with MOUNIKA Malagon and orders have been reviewed. Charges/Coding Visit Charges Inpatient E&M: 44982 Subs Hosp L2
--- NOTE | 2020-10-18 12:11 | CASEMGMT ---
SW spoke with patient as per physician she came in for placement. SW introduced self and role at [facility]. Patient was provided a list of SNF providers including quality and resource use data and consistent with the patient?s preferred geographic region, medical needs, and insurance network. SW highlighted the facilities that take her insurance in pink. Her daughter is coming in today after work they can look at the list. MARIAH explained to her that the ones in pink take her insurance. She gave SW permission to call her daughter. MARIAH called patient's daughter Kimmie. MARIAH let her know about the list. MARIAH also told her depending on which facility she picks some of them are requiring patients have a negative COVID test in order to be admitted. SW asked that they pick at least 3 facilities. She thanked MARIAH for the call. Neyda HUDDLESTON
--- NOTE | 2020-10-18 14:14 | CASEMGMT ---
Readmission chart review: Pt was initially admitted 10/05-10/07/20 for Severe sepsis, hypoxia, COVID. Pt had been dx with COVID on 09/25/20 per notes. Pt was sent home with a FWW and oxygen at discharge. Pt declined HHC and SNF at that time. Pt returned to [facility] ED 10/17/20 for weakness and inability to transfer self. Pt was admitted with pneumonia and has been on room air since arrival. Pt is requesting to be placed in SNF at discharge for further skilled therapy and Silvia LEMUS has already spoken with pt in regards to same. CM to follow for any further discharge planning/needs. SStelmo MARTINEZ CM
--- NOTE | 2020-10-18 16:22 | CHAPLAIN ---
Type of Pastoral Visit _x__ Initial Visit ___ Follow-up Visit ___ On-call Visit ___ General Patient Visit ___ Spiritual Assessment ___ Family Conference ___ Bereavement ___ Rapid Response ___ Code Blue ___ Other (describe below) Pastoral Care Referral From _x__ Patient ___ Family ___ Nurse ___ Physician ___ Principal Consultant ___ Extract Wringer ___ Other (describe below) Sacrament/Intervention _x__ Active listening ___ Anointing ___ Sabianism ___ Bereavement ___ Communion ___ [place]alia exploration ___ _x__ Life review _x__ Prayer ___ Reconciliation ___ Sacrament of Sick ___ Supportive presence ___ Wedding ___ Other (describe below) Pastoral Comments patient gives recent details of life and her health including the May of her spouse; life has changed for patient and discussion followed; pt welcomes prayer support and conversation
[2020-10-18] MEDS: Lisinopril 10 MG Tablet PO (20:50)
[2020-10-19] VITALS (9 sets, daily range): BP systolic 123–160; BP diastolic 63–89; PULSE 81–109; RESP 18–20; TEMP 36.1–36.8; O2SAT 93–96
[2020-10-19] MEDS: 0.9% Saline Lock 10 ML Syringe IV (05:06)
[2020-10-19] MEDS: Levothyroxine 137 MCG Tablet PO (05:07)
[2020-10-19 08:04] LABS: Absolute Lymphocyte Count 1.29 X10^3/uL (0.83-4.51); Absolute Neutrophil Count 11.8 X10^3/uL (2.0-7.7); Basophil# 0.03 X10^3/uL; Basophil% 0.2 % (0-1); Eosinophil# 0.02 X10^3/uL; Eosinophils% 0.1 % (0-5); Hematocrit 37.2 % (37-47); Hemoglobin 11.9 g/dL (12.0-15.0); Lymphocyte # 1.29 X10^3/ul (0.83-4.51); Lymphocyte % 9.1 % (19-41); Mean Corpuscular Volume 93.7 fL (81-99); Mean Platelet Vol. 9.5 fl (6.2-12.0); Monocyte# 0.81 X10^3/uL; Monocyte% 5.7 % (0-10); NRBC Flagged by Analyzer 0 % (0-5); Neutrophil # 11.82 X10^3/uL (2.7-7.7); Neutrophil % 83.3 % (47-70); Platelet Count 199 K/mm3 (150-450); RBC Distribution Width CV 13.8 % (11.6-14.6); RBC Distribution Width SD 47.4 fl (35.1-43.9); Red Blood Count 3.97 M/mm3 (4.2-5.4); White Blood Count 14.2 K/mm3 (4.4-11.0)
[2020-10-19 08:32] LABS: Vancomycin, Trough Level 18.3 ug/mL (5.0-15.0)
[2020-10-19 08:34] LABS: Anion Gap 8 (5-15); BUN 19 mg/dL (7-18); BUN/Creat Ratio 22.8 RATIO (10-20); Calcium,Total 8.1 mg/dL (8.5-10.1); Chloride 109 mmol/L (98-107); Creatinine, Serum 0.84 mg/dL (0.55-1.02); EST Glomerular Filtration Rate 71 mL/min (>60); Est Glom Filt Rate - Afr Amer 86 mL/min (>60); Estimated Creatinine Clearance 50.74 ml/min; Glucose 108 mg/dL (74-106); Sodium Level 141 mmol/L (136-145)
[2020-10-19] MEDS: dilTIAZem 30 MG Tablet 90 MG PO ×2 (09:37→21:11)
[2020-10-19] MEDS: Sotalol Hydrochloride 80 MG Tablet PO ×2 (09:37→21:11)
[2020-10-19] MEDS: APIXABAN 5 MG TABLET PO (09:37)
[2020-10-19] MEDS: Clopidogrel Bisulfate 75 MG Tablet PO (09:37)
--- NOTE | 2020-10-19 09:52 | PCM.RX.CS ---
Consult Pharmacy has been consulted to manage selected antiobiotic: Vancomycin Type of Consult: Follow-up Suspected Infection: Pneumonia Prior Doses of Antibiotics Received/Current Regimen: current regimen is 750mg IV q12h Labs: Sodium 141 mmol/L (136-145) 10/19/20 07:54 Potassium 4.0 mmol/L (3.5-5.1) 10/19/20 07:54 Chloride 109 mmol/L (98-107) H 10/19/20 07:54 Carbon Dioxide 24.0 mmol/L (21.0-32.0) 10/19/20 07:54 Anion Gap 8 (5-15) 10/19/20 07:54 BUN 19 mg/dL (7-18) H 10/19/20 07:54 Creatinine 0.84 mg/dL (0.55-1.02) 10/19/20 07:54 Est GFR (MDRD) Af Amer 86 mL/min (>60) 10/19/20 07:54 Est GFR (MDRD) Non-Af 71 mL/min (>60) 10/19/20 07:54 BUN/Creatinine Ratio 22.8 RATIO (10-20) H 10/19/20 07:54 Glucose 108 mg/dL (74-106) H 10/19/20 07:54 Vancomycin Trough 18.3 ug/mL (5.0-15.0) H 10/19/20 07:54 Microbiology: Microbiology 10/18/20 00:30 Urine, Clean Catch Legionella Antigen - Final 10/18/20 00:30 Urine, Clean Catch Streptococcus pneumoniae Antigen (M - Final Weight used for dosin.5 kg Estimated Creatinine Clearance: 51 ml/min Goal Trough: 15-20 mcg/mL Pharmacy Plan for Drug Dosing: The vanc trough drawn before this morning's dose came back as 18.3. This is within goal range so will continue same dosing. Will repeat a trough draw in 2 days since it was already on the higher end of the range to make sure it does not go above goal. Pharmacy Service will continue to monitor and adjust dosing as required. Follow-Up Labs: Trough Vancomycin Labs to be done on [date and time ordered]: 10/21/20 0800
--- NOTE | 2020-10-19 10:15 | CASEMGMT ---
SW spoke with patient. She and her daughter picked 4 facilities. SW told patient that SW will work on making referrals and keep her updated. MARIAH told her once we have a facility it will take a day or so to get approval and during that time she will stay here. MARIAH requested devulcanizer charger get a rapid COVID on patient. This will be needed for placement anyway. Neyda Lewis PRODUCTION MAINTENANCE TECHNICIAN KARO
--- NOTE | 2020-10-19 10:35 | CASEMGMT ---
COVID test was negative. Referral was faxed to [facility]. SW will follow up with a phone call. Neyda Lewis MSW KARO
--- NOTE | 2020-10-19 12:23 | PN.HOSP_ITS ---
Documented by User: Kali RIBERA 10/19/20 12:59 Subjective Subjective Patient is a 75-year-old female comfortably resting in bed, alert and orient x3. Denies any change or progression in symptoms. Denies chest pain, shortness of breath, palpitation, hemoptysis, sputum production, fever, chills, N/V/D. Objective Data Objective Data Vital Signs: Vital Signs Temp Pulse Resp BP Pulse Ox 98.1 F 93 18 160/63 H 96 10/19/20 09:10 10/19/20 09:10 10/19/20 09:10 10/19/20 09:10 10/19/20 09:10 Oxygen Delivery Method Room Air Weight: 212 lb 11.937 oz Body Mass Index (BMI) 36.2 Intake & Output: Intake and Output for Last 24 Hours 10/17/20 10/18/20 10/19/20 23:59 23:59 23:59 Intake Total 580 / 930 1200 / 1260 485 / 485 Balance 580 / 930 1200 / 1260 485 / 485 Lab / Micro Data Result Diagrams: 10/19/20 07:54 10/19/20 07:54 Labs: Laboratory Results - last 24 hr 10/19/20 10/19/20 10/19/20 07:54 07:54 07:54 WBC 14.2 H RBC 3.97 L Hgb 11.9 L Hct 37.2 MCV 93.7 D MCH 30.0 MCHC 32.0 D RDW Std Deviation 47.4 H RDW Coeff of Tor 13.8 Plt Count 199 MPV 9.5 Immature Gran % (Auto) 1.600 H Neut % (Auto) 83.3 H Lymph % (Auto) 9.1 L [place] % (Auto) 5.7 Eos % (Auto) 0.1 Baso % (Auto) 0.2 Absolute Neuts (auto) 11.8 H Absolute Lymphs (auto) 1.29 Nucleated RBC % 0 Sodium 141 Potassium 4.0 Chloride 109 H Carbon Dioxide 24.0 Anion Gap 8 BUN 19 H Creatinine 0.84 Estim Creat Clear Calc 50.74 Est GFR (MDRD) Af Amer 86 Est GFR (MDRD) Non-Af 71 BUN/Creatinine Ratio 22.8 H Glucose 108 H Calcium 8.1 L Vancomycin Trough 18.3 H Micro: Microbiology 10/19/20 08:48 Mucosa - Nose SARS-CoV-2 Antigen (Rapid) - Final 10/18/20 00:30 Urine, Clean Catch Legionella Antigen - Final 10/18/20 00:30 Urine, Clean Catch Streptococcus pneumoniae Antigen (M - Final Physical Exam Const alert, oriented x3 and no apparent distress HEENT head/scalp atraumatic and moist oral mucous membranes Head and Scalp: normocephalic Eyes PERRL, EOMs intact bilaterally and conjunctivae normal Neck no lymphadenopathy, supple and no JVD Resp normal respiratory effort, no retractions and no use of accessory muscles Auscultation: crackles and diminished lung sounds Cardio regular rate, regular rhythm, no murmurs and no JVD GI normal to inspection, nondistended, normoactive bowel sounds and soft to palpation Extremity normal to inspection, full ROM and no clubbing, cyanosis or edema Skin no rashes or lesions noted, no wounds and skin turgor normal Neuro CN's II-XII intact bilaterally Psych affect normal Assessment & Plan Assessment/Plan (1) Generalized weakness: (2) Leukocytosis: (3) Pneumonia: PLAN: See subjective for patient presentation. Discharge planning: Tristen petit sent to [facility] for evaluation. CM/SW following. 1) left upper lobe pneumonia Vital signs stable and patient is afebrile. Currently satting 95% on room air. Elevated leukocytosis with WBCs at 14,000 with neutrophilic predominance, down from admission. Patient was diagnosed with coronavirus at the end of September and had a 3-day hospital stay in early October. Decadron for COVID-19 was completed on 10/15/2020. Legionella and strep pneumo PCR negative. Blood cultures pending. Plan; continue vancomycin and Zosyn, continue supplemental oxygen, incentive spirometry encouraged. 2) generalized weakness PT/OT/case management following. Plan; discharge to SNF as above. 3) paroxysmal A. fib Stable. On diltiazem and sotalol for rate control and Eliquis for anticoagulation. Plan; continue Eliquis, sotalol and diltiazem. 4) CAD Continue Plavix. 5) hypertension Stable. Continue lisinopril and hydrochlorothiazide. 6) hyperlipidemia Continue statin. 7) hypothyroidism Continue levothyroxine. DVT prophylaxis - Eliquis Patient seen by Kali Mchugh PA-C, under the supervision of Dr. Wilson. Documented by User: Dr. Bari Wilson MD 10/19/20 14:42 Subjective Subjective Patient does not have cough, shortness of breath, tachypnea. No fever. MRSA nasal screen is negative. Vancomycin discontinued. Objective Data Lab / Micro Data Result Diagrams: 10/19/20 07:54 10/19/20 07:54 Physical Exam Narrative General: Alert, Oriented x3, Cooperative HEENT: Atraumatic, PERRLA, EOMI, Normocephalic Oral: No Gingival or Mucosal Lesions/ Ulcerations Neck: Supple, No JVD, Negative Carotid Bruits Lungs: Air entry diminished in bilateral lung bases. Bilateral lung bases expiratory wheezing and crepitations present. Cardiovascular: youth nutritional monitor A. fib, irregular heartbeat, normal S1, Normal S2, No murmurs Abdomen: Bowel Sounds Present, Soft, Non Tender, Non-Distended : No renal angle tenderness. No suprapubic tenderness. Extremities: No edema, Capillary Refill Less than 3 Seconds Skin: No rashes, No breakdown Musculoskeletal: No Tenderness to Palpation of Joints or Extremities. Bilateral lower legs mild weakness. Neurological: Cranial nerves II-XII grossly intact, Deep Tendon Reflexes 2+/4 Psych/Mental Status: Normal Affect, Appropriate. Assessment & Plan Assessment/Plan (1) Generalized weakness: (2) Pneumonia: (3) Severe sepsis: PLAN: This patient was seen in conjunction with MOUNIKA Malagon. I have independently interviewed and examined the patient and reviewed pertinent history, examination findings, laboratory and plan of management. I have reviewed the note and agree with the documented findings with the few additional points. In brief, patient is admitted for generalized weakness and was found new left upper lobe infiltrate, not present in previous x-ray; clinical and lab evaluation consistent with severe sepsis. Patient was started on IV vancomycin and Zosyn for suspected nosocomial pneumonia. Vancomycin is discontinued today as patient did not had fever or chills or other symptoms of pneumonia in the last 48 hours. MRSA nasal screen is negative. Incentive spirometry and Pep encouraged. Generalized weakness. PT and OT consulted. Patient has leukocytosis which may be misleading secondary to Decadron 10/15. She has history of paroxysmal A. fib, coronary artery disease and hypertension and other comorbidities as mentioned above I have discussed my assessment with MOUNIKA Malagon and orders have been reviewed. Charges/Coding Visit Charges Inpatient E&M: 85570 Subs Hosp L2
--- NOTE | 2020-10-19 15:22 | CASEMGMT ---
SOCIAL WORK Spoke with Sharon at [facility], Sharon reports able to accept patient and will initiate precert. MARIAH Faye. Robert. Maximino, MILITARY SCIENCE TEACHER, RESULTS TECHNICIAN
--- NOTE | 2020-10-19 15:42 | CASEMGMT ---
MARIAH let patient know that [facility] can take her. MARIAH told her that she will likely have to quarantine for 14 days. MARIAH told her she may have 1 visit during that time. MARIAH told her SW will double check with [facility] and let her know. MARIAH also left SW's card so her daughter can call MARIAH if needed. Plan: [facility] pending pre-cert. Neyda Lewis CUSTOMS INSPECTOR KARO
[2020-10-19] MEDS: Lisinopril 10 MG Tablet PO (21:11)
[2020-10-20] VITALS (10 sets, daily range): BP systolic 104–137; BP diastolic 53–73; PULSE 80–130; RESP 18; TEMP 36.6–37.3; O2SAT 93–98
[2020-10-20] MEDS: Levothyroxine 137 MCG Tablet PO (05:25)
[2020-10-20 06:28] LABS: Absolute Lymphocyte Count 1.47 X10^3/uL (0.83-4.51); Absolute Neutrophil Count 9.6 X10^3/uL (2.0-7.7); Basophil# 0.04 X10^3/uL; Basophil% 0.3 % (0-1); Eosinophil# 0.11 X10^3/uL; Eosinophils% 0.9 % (0-5); Hematocrit 36.1 % (37-47); Hemoglobin 11.2 g/dL (12.0-15.0); Lymphocyte # 1.47 X10^3/ul (0.83-4.51); Mean Corpuscular Hgb 30.3 pg (27.0-32.0); Mean Corpuscular Volume 97.6 fL (81-99); Mean Platelet Vol. 10.1 fl (6.2-12.0); Monocyte# 0.88 X10^3/uL; Monocyte% 7.2 % (0-10); NRBC Flagged by Analyzer 0 % (0-5); POSITIVE COUNT YES; Platelet Count 144 K/mm3 (150-450); RBC Distribution Width CV 14.2 % (11.6-14.6); RBC Distribution Width SD 50.8 fl (35.1-43.9); White Blood Count 12.3 K/mm3 (4.4-11.0)
[2020-10-20 06:33] LABS: Differential Indicated SCAN CRITERIA MET
[2020-10-20 06:50] LABS: Anion Gap 7 (5-15); BUN 18 mg/dL (7-18); BUN/Creat Ratio 19.2 RATIO (10-20); Calcium,Total 8.4 mg/dL (8.5-10.1); Chloride 108 mmol/L (98-107); Creatinine, Serum 0.94 mg/dL (0.55-1.02); EST Glomerular Filtration Rate 62 mL/min (>60); Est Glom Filt Rate - Afr Amer 75 mL/min (>60); Estimated Creatinine Clearance 45.34 ml/min; Glucose 123 mg/dL (74-106); Potassium 3.9 mmol/L (3.5-5.1); Sodium Level 136 mmol/L (136-145)
[2020-10-20] MEDS: Sotalol Hydrochloride 80 MG Tablet PO ×2 (09:39→22:10)
[2020-10-20] MEDS: dilTIAZem 30 MG Tablet 90 MG PO ×2 (09:39→22:10)
[2020-10-20] MEDS: Clopidogrel Bisulfate 75 MG Tablet PO (09:39)
[2020-10-20] MEDS: APIXABAN 5 MG TABLET PO (09:39)
--- NOTE | 2020-10-20 13:26 | PCM.PN.HOSP ---
Documented by User: Kali RIBERA 10/20/20 13:30 Subjective Subjective Patient is a 75-year-old female comfortably resting in bed, alert and oriented x3. Patient denies any progression of symptoms from yesterday. Denies chest pain, shortness of breath, palpitations, sputum production, hemoptysis, fever, chills, N/V/D. Objective Data Objective Data Vital Signs: Vital Signs Temp Pulse Resp BP Pulse Ox 97.9 F 112 H 18 104/56 L 97 10/20/20 09:37 10/20/20 09:37 10/20/20 09:37 10/20/20 09:37 10/20/20 09:37 Oxygen Delivery Method Room Air Weight: 212 lb 15.465 oz Body Mass Index (BMI) 36.2 Intake & Output: Intake and Output for Last 24 Hours 10/18/20 10/19/20 10/20/20 23:59 23:59 23:59 Intake Total 1200 / 1260 895 / 1015 820 / 820 Output Total 500 / 500 Balance 1200 / 1260 395 / 515 820 / 820 Lab / Micro Data Result Diagrams: 10/20/20 06:14 10/20/20 06:14 Labs: Laboratory Results - last 24 hr 10/20/20 10/20/20 06:14 06:14 WBC 12.3 H RBC 3.70 L Hgb 11.2 L Hct 36.1 L MCV 97.6 MCH 30.3 MCHC 31.0 L RDW Std Deviation 50.8 H RDW Coeff of Tor 14.2 Plt Count 144 L MPV 10.1 Immature Gran % (Auto) 1.600 H Neut % (Auto) 78.0 H Lymph % (Auto) 12.0 L [place] % (Auto) 7.2 Eos % (Auto) 0.9 Baso % (Auto) 0.3 Absolute Neuts (auto) 9.6 H Absolute Lymphs (auto) 1.47 Nucleated RBC % 0 Sodium 136 Potassium 3.9 Chloride 108 H Carbon Dioxide 21.0 Anion Gap 7 BUN 18 Creatinine 0.94 Estim Creat Clear Calc 45.34 Est GFR (MDRD) Af Amer 75 Est GFR (MDRD) Non-Af 62 BUN/Creatinine Ratio 19.2 Glucose 123 H Calcium 8.4 L Micro: Microbiology 10/17/20 18:40 Blood Culture (Wb) - Anticubital Left Blood Culture - Preliminary No growth in 48 hours. 10/17/20 18:35 Blood Culture (Wb) - Right Hand Blood Culture - Preliminary No growth in 48 hours. 10/19/20 08:48 Mucosa - Nose SARS-CoV-2 Antigen (Rapid) - Final 10/18/20 00:30 Urine, Clean Catch Legionella Antigen - Final 10/18/20 00:30 Urine, Clean Catch Streptococcus pneumoniae Antigen (M - Final Physical Exam Const alert, oriented x3 and no apparent distress HEENT head/scalp atraumatic and moist oral mucous membranes Head and Scalp: normocephalic Eyes PERRL, EOMs intact bilaterally and conjunctivae normal Neck no lymphadenopathy, supple and no JVD Resp normal respiratory effort, no retractions and no use of accessory muscles Cardio regular rate, regular rhythm, no murmurs and no JVD GI normal to inspection, nondistended, normoactive bowel sounds and soft to palpation Extremity normal to inspection and full ROM Skin no rashes or lesions noted and no wounds Neuro CN's II-XII intact bilaterally Psych affect normal Assessment & Plan Assessment/Plan (1) Generalized weakness: (2) Leukocytosis: (3) Pneumonia: PLAN: See subjective for patient presentation. Discharge planning: discharge to [facility] pending Pre-CERT. 1) left upper lobe pneumonia Vital signs stable and patient is afebrile. Currently satting 95% on room air. Elevated leukocytosis with WBCs at 14,000 with neutrophilic predominance, down from admission. Patient was diagnosed with coronavirus at the end of September and had a 3-day hospital stay in early October. Decadron for COVID-19 was completed on 10/15/2020. Legionella and strep pneumo PCR negative. Blood cultures demonstrate no growth. Plan; discontinue Vancomycin, continue Zosyn, continue supplemental oxygen, incentive spirometry encouraged. 2) generalized weakness PT/OT/case management following. Plan; discharge to SNF as above. 3) paroxysmal A. fib Stable. On diltiazem and sotalol for rate control and Eliquis for anticoagulation. Plan; continue Eliquis, sotalol and diltiazem. 4) CAD Continue Plavix. 5) hypertension Stable. Continue lisinopril and hydrochlorothiazide. 6) hyperlipidemia Continue statin. 7) hypothyroidism Continue levothyroxine. DVT prophylaxis - Eliquis Patient seen by Kali Mchugh PA-C, under the supervision of Dr. Wilson. Documented by User: Dr. Bari Wilson MD 10/20/20 15:23 Subjective Subjective Patient is comfortable. No shortness of breath or cough. Objective Data Lab / Micro Data Result Diagrams: 10/20/20 06:14 10/20/20 06:14 Physical Exam Narrative General: Alert, Oriented x3, Cooperative HEENT: Atraumatic, PERRLA, EOMI, Normocephalic Oral: No Gingival or Mucosal Lesions/ Ulcerations Neck: Supple, No JVD, Negative Carotid Bruits Lungs: Air entry diminished in bilateral lung bases. Mild bilateral crepitations present. Cardiovascular: attendant honor bar A. fib, irregular heartbeat, normal S1, Normal S2, No murmurs Abdomen: Bowel Sounds Present, Soft, Non Tender, Non-Distended : No renal angle tenderness. No suprapubic tenderness. Extremities: No edema, Capillary Refill Less than 3 Seconds Skin: No rashes, No breakdown Musculoskeletal: No Tenderness to Palpation of Joints or Extremities. Bilateral lower legs mild weakness. Neurological: Cranial nerves II-XII grossly intact, Deep Tendon Reflexes 2+/4 Psych/Mental Status: Normal Affect, Appropriate. Assessment & Plan Assessment/Plan (1) Severe sepsis: PLAN: This patient was seen in conjunction with MOUNIKA Malagon. I have independently interviewed and examined the patient and reviewed pertinent history, examination findings, laboratory and plan of management. I have reviewed the note and agree with the documented findings with the few additional points. In brief, patient is admitted for generalized weakness and was found new left upper lobe infiltrate, not present in previous x-ray; clinical and lab evaluation consistent with severe sepsis. Patient was started on IV vancomycin and Zosyn for suspected nosocomial pneumonia. Vancomycin is discontinued today as patient did not had fever or chills or other symptoms of pneumonia in the last 48 hours. MRSA nasal screen is negative. Incentive spirometry and Pep encouraged. Urinary antigens are negative. Blood cultures are negative for more than 48 hours. Respiratory panel was negative on 10/05. Generalized weakness. PT and OT consulted. Patient has leukocytosis which may be misleading secondary to Decadron 10/15. She has history of paroxysmal A. fib, coronary artery disease and hypertension and other comorbidities as mentioned above I have discussed my assessment with MOUNIKA Malagon and orders have been reviewed. Charges/Coding Visit Charges Inpatient E&M: 83653 Subs Hosp L2
[2020-10-20] MEDS: 0.9% Saline Lock 10 ML Syringe IV (22:10)
[2020-10-20] MEDS: Lisinopril 10 MG Tablet PO (22:12)
[2020-10-21] VITALS (8 sets, daily range): BP systolic 107–130; BP diastolic 44–75; PULSE 70–124; RESP 16–18; TEMP 36.8–37; O2SAT 92–97
[2020-10-21] MEDS: Levothyroxine 137 MCG Tablet PO (06:06)
[2020-10-21 08:18] LABS: Vancomycin, Trough Level 8.6 ug/mL (5.0-15.0)
--- NOTE | 2020-10-21 08:31 | CPS ---
SHE IS WORKING WELL ON HER OWN
--- NOTE | 2020-10-21 09:41 | CASEMGMT ---
Patient was approved to go to [facility] today. SW notified RN, physician, and private secretary. SW will also notify patient. Neyda HUDDLESTON
[2020-10-21] MEDS: Sotalol Hydrochloride 80 MG Tablet PO (10:11)
[2020-10-21] MEDS: dilTIAZem 30 MG Tablet 90 MG PO (10:11)
[2020-10-21] MEDS: APIXABAN 5 MG TABLET PO (10:11)
[2020-10-21] MEDS: Clopidogrel Bisulfate 75 MG Tablet PO (10:11)
--- NOTE | 2020-10-21 10:23 | CASEMGMT ---
SW spoke with patient letting her know she was approved and she will go today. SW also told her that she will have to quarantine for 14 days and she will not be allowed to have any visitors during that time. MARIAH did tell her that [facility] said they evaluate her weekly during this time and if she has having a hard time not seeing family then they can make accommodations for her to have 1 visitor. Patient said that is fine. She will text her daughter and let her know she is going today. Convalescent completed on HENS. Await orders. Neyda Lewis SECURITY SYSTEMS TECHNICIAN KARO
--- NOTE | 2020-10-21 10:31 | PCM.TXEXTCAR ---
Documented by User: ASHLEY Banegas 10/21/20 10:38 Diet 10/17/20 19:26 Diet: Cardiac - Heart Healthy Food consistency:: Regular Liquid Consistency:: Regular/Thin Problem/Diagnosis (1) Severe sepsis: Status: Acute Allergies/Procedures Done in Hospital Allergies No Known Allergies Allergy (Verified 10/17/20 16:10) Type of Care/Length of Stay Estimated LOS: Convalescent Care Less Than 30 days Type of Care Needed: Skilled Rehab Potential: Good Prognosis: Good Additional Orders/Day of Discharge Day of Discharge: 10/21/20 Dietary and Speech Recommendations Dietitian Recommendations/Changes: Continue cardiac diet. Offer ONS as needed if intake declines at meals; will defer for now. Discharge Plan Admission Admit Date/Time: 10/17/20 18:41 Primary Reason for Your Visit: PNA, weakness Attending Provider: Bari Wilson Primary Care Provider: Oneil Warren Instructions Patient Instructions: Pneumonia, Pneumonia Discharge Orders/Prescriptions Prescriptions: New amoxicillin-pot clavulanate [Augmentin] 875-125 mg tablet 1 tab PO BID Qty: 8 RF: 0 atorvastatin 40 mg tablet 40 mg PO DAILY Qty: 30 RF: 0 diltiazem HCl [Cardizem CD] 120 mg capsule,extended release 24hr 120 mg PO BID Qty: 60 RF: 2 Continued cyclobenzaprine 10 mg tablet 10 mg PO BID PRN (Reason: Spasms) RF: 0 levothyroxine [Euthyrox] 137 mcg tablet 137 mcg PO DAILY RF: 0 sotalol 80 mg tablet 80 mg PO BID RF: 0 clopidogrel 75 mg tablet 75 mg PO DAILY RF: 0 lisinopril 10 mg tablet 10 mg PO QHS RF: 0 hydrochlorothiazide 25 mg tablet 25 mg PO DAILY RF: 0 diltiazem HCl 90 mg Tablet 90 mg PO BID RF: 0 Eliquis 5 mg Tablet 5 mg PO DAILY RF: 0 dexamethasone [Decadron] 6 mg tablet 6 mg PO DAILY Qty: 8 RF: 0 Discontinued simvastatin 20 mg tablet 20 mg PO QHS RF: 0 Referrals / Follow Up: Evan Noble MD [STAFF PHYSICIAN] - Within 1 Month (A fib with RVR) Yaw Krishnamurthy DO [STAFF PHYSICIAN] - Within 1 Month (COVID pneumonia in SEPTEMBER, Bacterial Pneumonia) Oneil Warren MD [Primary Care Provider] - Within 2 Weeks Disposition Disposition (needs filled in before D/C Order can be placed): [facility] Facility Documented by User: Dr. Bari Wilson MD 10/21/20 11:36 Allergies/Procedures Done in Hospital Allergies No Known Allergies Allergy (Verified 10/17/20 16:10) Discharge Plan Admission Admit Date/Time: 10/17/20 18:41 Primary Reason for Your Visit: PNA, weakness Attending Provider: Bari Wilson Primary Care Provider: Oneil Warren Instructions Patient Instructions: Pneumonia, Pneumonia Discharge Orders/Prescriptions Prescriptions: New amoxicillin-pot clavulanate [Augmentin] 875-125 mg tablet 1 tab PO BID Qty: 8 RF: 0 atorvastatin 40 mg tablet 40 mg PO DAILY Qty: 30 RF: 0 diltiazem HCl [Cardizem CD] 120 mg capsule,extended release 24hr 120 mg PO BID Qty: 60 RF: 2 Continued cyclobenzaprine 10 mg tablet 10 mg PO BID PRN (Reason: Spasms) RF: 0 levothyroxine [Euthyrox] 137 mcg tablet 137 mcg PO DAILY RF: 0 sotalol 80 mg tablet 80 mg PO BID RF: 0 clopidogrel 75 mg tablet 75 mg PO DAILY RF: 0 lisinopril 10 mg tablet 10 mg PO QHS RF: 0 hydrochlorothiazide 25 mg tablet 25 mg PO DAILY RF: 0 diltiazem HCl 90 mg Tablet 90 mg PO BID RF: 0 Eliquis 5 mg Tablet 5 mg PO DAILY RF: 0 dexamethasone [Decadron] 6 mg tablet 6 mg PO DAILY Qty: 8 RF: 0 Discontinued simvastatin 20 mg tablet 20 mg PO QHS RF: 0 Referrals / Follow Up: Evan Noble MD [STAFF PHYSICIAN] - Within 1 Month (A fib with RVR) Yaw Krishnamurthy DO [STAFF PHYSICIAN] - Within 1 Month (COVID pneumonia in SEPTEMBER, Bacterial Pneumonia) Oneil Warren MD [Primary Care Provider] - Within 2 Weeks Disposition Disposition (needs filled in before D/C Order can be placed): [facility] Facility
--- NOTE | 2020-10-21 10:39 | PCM.DC.SUM ---
Documented by User: ASHLEY Banegas 10/21/20 10:57 Providers Date of Admission: 10/17/20 Primary Care Physician: Dr. Oneil Warren MD Reason For Visit: PNA Diagnosis Discharge Diagnosis (1) Severe sepsis: Status: Acute Code(s): A41.9 - Sepsis, unspecified organism; R65.20 - Severe sepsis without septic shock Plan: (1) Generalized weakness: (2) Leukocytosis: (3) Pneumonia: PLAN: discharge to [facility] 1) left upper lobe pneumonia Vital signs stable and patient is afebrile. Patient was diagnosed with coronavirus at the end of September and had a 3-day hospital stay in early October. Legionella and strep pneumo PCR negative. Will continue with Augmentin for 4 more days for a total of 7 days of ATB therapy. 2) generalized weakness discharge to SNF with PT/OT 3) paroxysmal A. fib Stable. On diltiazem and sotalol for rate control and Eliquis for anticoagulation. 4) CAD Continue Plavix. 5) hypertension Stable. Continue lisinopril and hydrochlorothiazide. 6) hyperlipidemia Continue statin. 7) hypothyroidism Continue levothyroxine. DVT prophylaxis - anticoagulated with Eliquis. Patient seen by Loly Cuevas NP, under the supervision of Dr. Wilson. Medications at Discharge Home Medications Eliquis 5 mg PO DAILY 10/05/20 clopidogrel 75 mg PO DAILY 10/05/20 cyclobenzaprine 10 mg PO BID PRN 10/05/20 diltiazem HCl 90 mg PO BID 10/05/20 hydrochlorothiazide 25 mg PO DAILY 10/05/20 levothyroxine [Euthyrox] 137 mcg PO DAILY 10/05/20 lisinopril 10 mg PO QHS 10/05/20 sotalol 80 mg PO BID 10/05/20 dexamethasone [Decadron] 6 mg PO DAILY #8 tab 10/07/20 amoxicillin-pot clavulanate [Augmentin] 1 tab PO BID #8 tab 10/21/20 atorvastatin 40 mg PO DAILY #30 tab 10/21/20 diltiazem HCl [Cardizem CD] 120 mg PO BID #60 cap 10/21/20 Hospital Course Operations None Procedures EKG Summary of Care Provided Minutes Spent on Discharge: 35 Physical Exam Const alert, oriented x3 and no apparent distress HEENT normocephalic and head/scalp atraumatic Eyes PERRL and EOMs intact bilaterally Neck full ROM, no lymphadenopathy, supple, no JVD and thyroid normal Resp normal respiratory effort, normal air movement, no use of accessory muscles and clear to auscultation bilaterally Cardio regular rate, S1 normal heart sound and S2 normal heart sound Rhythm: abnormal rhythm irregularly irregular GI normal to inspection, nondistended, normoactive bowel sounds, soft to palpation and non-tender Extremity normal to inspection, full ROM, normal capillary refill and no clubbing, cyanosis or edema Skin no rashes or lesions noted, no wounds and skin turgor normal Neuro oriented x3 and CN's II-XII intact bilaterally Psych mental status grossly normal, thought process normal, cooperative and affect normal Weight / BMI Weight Weight: 212 lb 15.465 oz Body Mass Index (BMI) 36.2 ABG / Lab / Microbiology Data Result Diagrams: 10/20/20 06:14 10/20/20 06:14 Laboratory: Laboratory Results - last 24 hr 10/21/20 07:51 Vancomycin Trough 8.6 Microbiology: Microbiology 10/17/20 18:40 Blood Culture - Preliminary Blood Culture (Wb) - Anticubital Left No growth in 48 hours. 10/17/20 18:35 Blood Culture - Preliminary Blood Culture (Wb) - Right Hand No growth in 48 hours. Microbiology 10/17/20 18:40 Blood Culture (Wb) - Anticubital Left Blood Culture - Preliminary No growth in 48 hours. 10/17/20 18:35 Blood Culture (Wb) - Right Hand Blood Culture - Preliminary No growth in 48 hours. 10/19/20 08:48 Mucosa - Nose SARS-CoV-2 Antigen (Rapid) - Final 10/18/20 00:30 Urine, Clean Catch Legionella Antigen - Final 10/18/20 00:30 Urine, Clean Catch Streptococcus pneumoniae Antigen (M - Final D/C Instructions Discharge Diet: Low fat / Low cholesterol Discharge Activity: Return to Normal Activity Weight Bearing Status: Full weight bearing Call your doctor if you observe: Fever of 101 or Higher, Shortness of breath, Chest pain and Increased palpitations (irregular heartbeat) Meaningful Use Info Meaningful Use Diagnoses (Choose all that apply): None applicable Discharge Plan Admission Admit Date/Time: 10/17/20 18:41 Primary Reason for Your Visit: PNA, weakness Attending Provider: Bari Wilson Primary Care Provider: Oneil Warren Instructions Patient Instructions: Pneumonia, Pneumonia Additional Instructions / Restrictions: Patient Problems: Altered Health Status related to Hospitalization Patient Goals: *Optimal Level of Health *Keep Appointments *Medication Compliance *Remain Safe Discharge Orders/Prescriptions Prescriptions: New amoxicillin-pot clavulanate [Augmentin] 875-125 mg tablet 1 tab PO BID Qty: 8 RF: 0 atorvastatin 40 mg tablet 40 mg PO DAILY Qty: 30 RF: 0 diltiazem HCl [Cardizem CD] 120 mg capsule,extended release 24hr 120 mg PO BID Qty: 60 RF: 2 Continued cyclobenzaprine 10 mg tablet 10 mg PO BID PRN (Reason: Spasms) RF: 0 levothyroxine [Euthyrox] 137 mcg tablet 137 mcg PO DAILY RF: 0 sotalol 80 mg tablet 80 mg PO BID RF: 0 clopidogrel 75 mg tablet 75 mg PO DAILY RF: 0 lisinopril 10 mg tablet 10 mg PO QHS RF: 0 hydrochlorothiazide 25 mg tablet 25 mg PO DAILY RF: 0 diltiazem HCl 90 mg Tablet 90 mg PO BID RF: 0 Eliquis 5 mg Tablet 5 mg PO DAILY RF: 0 dexamethasone [Decadron] 6 mg tablet 6 mg PO DAILY Qty: 8 RF: 0 Discontinued simvastatin 20 mg tablet 20 mg PO QHS RF: 0 Referrals / Follow Up: Evan Noble MD [STAFF PHYSICIAN] - Within 1 Month (A fib with RVR) Yaw Krishnamurthy DO [STAFF PHYSICIAN] - Within 1 Month (COVID pneumonia in SEPTEMBER, Bacterial Pneumonia) Oneil Warren MD [Primary Care Provider] - Within 2 Weeks Disposition Disposition (needs filled in before D/C Order can be placed): Shelter Facility Documented by User: Dr. Bari Wilson MD 10/21/20 14:30 Providers Date of Admission: 10/17/20 Reason For Visit: PNA Medications at Discharge Home Medications Eliquis 5 mg PO DAILY 10/05/20 clopidogrel 75 mg PO DAILY 10/05/20 cyclobenzaprine 10 mg PO BID PRN 10/05/20 diltiazem HCl 90 mg PO BID 10/05/20 hydrochlorothiazide 25 mg PO DAILY 10/05/20 levothyroxine [Euthyrox] 137 mcg PO DAILY 10/05/20 lisinopril 10 mg PO QHS 10/05/20 sotalol 80 mg PO BID 10/05/20 dexamethasone [Decadron] 6 mg PO DAILY #8 tab 10/07/20 amoxicillin-pot clavulanate [Augmentin] 1 tab PO BID #8 tab 10/21/20 atorvastatin 40 mg PO DAILY #30 tab 10/21/20 diltiazem HCl [Cardizem CD] 120 mg PO BID #60 cap 10/21/20 Hospital Course Summary of Care Provided Hospital Course: This patient was seen in conjunction with NOEL Salcido. I have independently interviewed and examined the patient and reviewed pertinent history, examination findings, laboratory and plan of management. I have reviewed the note and agree with the documented findings with the few additional points. In brief, patient is admitted for generalized weakness and was found new left upper lobe infiltrate, not present in previous x-ray; clinical and lab evaluation consistent with severe sepsis. Patient was started on IV vancomycin and Zosyn for suspected nosocomial pneumonia. Vancomycin is discontinued today as patient did not had fever or chills or other symptoms of pneumonia in the last 48 hours. MRSA nasal screen is negative. Incentive spirometry and Pep encouraged. Urinary antigens are negative. Blood cultures are negative for more than 48 hours. Respiratory panel was negative on 10/05. Generalized weakness. PT and OT consulted. Patient has leukocytosis which may be misleading secondary to Decadron 10/15. Tentative discharge on Augmentin to complete a total of 7 days of antibiotic therapy. Patient also has A. fib with RVR and dose of Cardizem CD increased to 120 mg twice daily. Patient does not have pounding or palpitations sensation. Discharge medication reconciliation done. Discharge follow-up instructions completed. Discharge process discussed with the patient and all questions were answered to patient's satisfaction. Total time spent, exact 35 minutes on discharge meds reconciliation, examination, coordination of care with nurses and ancillary staff, review of imaging and blood test and discussion with the patient on follow-up instructions I have discussed my assessment with Loly, [employer] and orders have been reviewed. Physical Exam Narrative General: Alert, Oriented x3, Cooperative HEENT: Atraumatic, PERRLA, EOMI, Normocephalic Oral: No Gingival or Mucosal Lesions/ Ulcerations Neck: Supple, No JVD, Negative Carotid Bruits Lungs: Air entry diminished in bilateral lung bases. Lungs clear. Cardiovascular: classroom monitor A. fib, with heart rate in 90s?100s. Normal S1, Normal S2, No murmurs Abdomen: Bowel Sounds Present, Soft, Non Tender, Non-Distended : No renal angle tenderness. No suprapubic tenderness. Extremities: No edema, Capillary Refill Less than 3 Seconds Skin: No rashes, No breakdown Musculoskeletal: No Tenderness to Palpation of Joints or Extremities. Bilateral lower legs mild weakness. Neurological: Cranial nerves II-XII grossly intact, Deep Tendon Reflexes 2+/4 Psych/Mental Status: Normal Affect, Appropriate. HEENT normocephalic, head/scalp atraumatic, hearing grossly normal bilaterally, moist oral mucous membranes and oropharynx normal Eyes PERRL, EOMs intact bilaterally and conjunctivae normal Neck full ROM, no lymphadenopathy, supple, no JVD, thyroid normal and no carotid bruits Resp normal respiratory effort, normal air movement, no use of accessory muscles and clear to auscultation bilaterally Resp Narrative: Diminished left upper lobe but otherwise clear Auscultation: Negative for crackles, rales, rhonchi or wheezes Cardio regular rate, S1 normal heart sound, S2 normal heart sound, no murmurs, no rub, no gallops, no clicks and no JVD Cardio Narrative: Irregular rhythm Rhythm: abnormal rhythm irregularly irregular GI normal to inspection, nondistended, normoactive bowel sounds, soft to palpation, non-tender and non-distended Extremity normal to inspection, full ROM, normal capillary refill and no clubbing, cyanosis or edema Skin no rashes or lesions noted, no wounds, skin turgor normal, no jaundice, no petechiae and no mottling Neuro oriented x3, CN's II-XII intact bilaterally and no focal motor deficits Sensorium / Orientation: awake, alert, oriented to person, oriented to place and oriented to time Speech: speech normal Psych mental status grossly normal, thought process normal, cooperative and affect normal ABG / Lab / Microbiology Data Result Diagrams: 10/20/20 06:14 06/16/21 06:14 Discharge Plan Admission Admit Date/Time: 10/17/20 18:41 Primary Reason for Your Visit: PNA, weakness Attending Provider: Bari Wilson Primary Care Provider: Oneil Warren Instructions Patient Instructions: Pneumonia, Pneumonia Additional Instructions / Restrictions: Patient Problems: Altered Health Status related to Hospitalization Patient Goals: *Optimal Level of Health *Keep Appointments *Medication Compliance *Remain Safe Discharge Orders/Prescriptions Prescriptions: New amoxicillin-pot clavulanate [Augmentin] 875-125 mg tablet 1 tab PO BID Qty: 8 RF: 0 atorvastatin 40 mg tablet 40 mg PO DAILY Qty: 30 RF: 0 diltiazem HCl [Cardizem CD] 120 mg capsule,extended release 24hr 120 mg PO BID Qty: 60 RF: 2 Continued cyclobenzaprine 10 mg tablet 10 mg PO BID PRN (Reason: Spasms) RF: 0 levothyroxine [Euthyrox] 137 mcg tablet 137 mcg PO DAILY RF: 0 sotalol 80 mg tablet 80 mg PO BID RF: 0 clopidogrel 75 mg tablet 75 mg PO DAILY RF: 0 lisinopril 10 mg tablet 10 mg PO QHS RF: 0 hydrochlorothiazide 25 mg tablet 25 mg PO DAILY RF: 0 diltiazem HCl 90 mg Tablet 90 mg PO BID RF: 0 Eliquis 5 mg Tablet 5 mg PO DAILY RF: 0 dexamethasone [Decadron] 6 mg tablet 6 mg PO DAILY Qty: 8 RF: 0 Discontinued simvastatin 20 mg tablet 20 mg PO QHS RF: 0 Referrals / Follow Up: Evan Noble MD [STAFF PHYSICIAN] - Within 1 Month (A fib with RVR) Yaw Krishnamurthy DO [STAFF PHYSICIAN] - Within 1 Month (COVID pneumonia in SEPTEMBER, Bacterial Pneumonia) Oneil Warren MD [Primary Care Provider] - Within 2 Weeks Disposition Disposition (needs filled in before D/C Order can be placed): Shelter Facility Charges/Coding Visit Charges Inpatient E&M: 43519 Disch Hosp
--- NOTE | 2020-10-21 11:07 | PHA.DC.MR ---
Pharmacy Service has performed discharge medication reconciliation for this patient upon transfer to [facility]. Home Medications Eliquis 5 mg PO DAILY 10/05/20 clopidogrel 75 mg PO DAILY 10/05/20 cyclobenzaprine 10 mg PO BID PRN 10/05/20 diltiazem HCl 90 mg PO BID 10/05/20 hydrochlorothiazide 25 mg PO DAILY 10/05/20 levothyroxine [Euthyrox] 137 mcg PO DAILY 10/05/20 lisinopril 10 mg PO QHS 10/05/20 simvastatin 20 mg PO QHS 10/05/20 sotalol 80 mg PO BID 10/05/20 dexamethasone [Decadron] 6 mg PO DAILY #8 tab 10/07/20 amoxicillin-pot clavulanate [Augmentin] 1 tab PO BID #8 tab 10/21/20 The patient's discharge medication list was reviewed for discrepancies and discrepancies were resolved. Note: Discussed once daily Eliquis dosing with pt. Has been on once daily dosing from PCP for several years. Notified providers of this information.
[2020-10-21] MEDS: 0.9% Saline Lock 10 ML Syringe IV (11:38)
--- NOTE | 2020-10-21 12:09 | CASEMGMT ---
MARIAH faxed orders to [facility]. Completed convalescent on [facility]. MARIAH arranged for patient to get picked up at 1300 via [employer] van. MARIAH notified RN, receptionist secretary, Sharon at [facility], and patient. Plan: d/c to [facility] under skilled level of care on a convalescent stay. [facility] transported via [employer] van. Neyda Lewis EMPLOYMENT SPECIALIST/PROGRAM MANAGER KARO
--- NOTE | 2020-10-21 14:25 | NURSING ---
Called report to Grace MALHOTRA at [facility] at 1310.
--- NOTE | 2020-12-29 16:24 | PCM.HP.STD ---
HPI - General General Date of Admission: 10/17/20 HPI Narrative DARRELL PALACIOS, is a 75 F who presents [facility] Medical History Afib CAD (coronary artery disease) (~12/06/19) HLD (hyperlipidemia) Hypertension Hypothyroidism Non-smoker Stroke/cerebrovascular accident Home Medications Eliquis 5 mg PO DAILY 10/05/20 [History Last Taken 10/17/20] clopidogrel 75 mg PO DAILY 10/05/20 [History Last Taken 10/17/20] cyclobenzaprine 10 mg PO BID PRN 10/05/20 [History Last Taken Unknown] diltiazem HCl 90 mg PO BID 10/05/20 [History Last Taken 10/17/20] hydrochlorothiazide 25 mg PO DAILY 10/05/20 [History Last Taken 10/17/20] levothyroxine [Euthyrox] 137 mcg PO DAILY 10/05/20 [History Last Taken 10/17/20] lisinopril 10 mg PO QHS 10/05/20 [History Last Taken 10/17/20] sotalol 80 mg PO BID 10/05/20 [History Last Taken 10/17/20] dexamethasone [Decadron] 6 mg PO DAILY #8 tab 10/07/20 [Rx Last Taken Unknown] amoxicillin-pot clavulanate [Augmentin] 1 tab PO BID #8 tab 10/21/20 [Rx Last Taken Unknown] atorvastatin 40 mg PO DAILY #30 tab 10/21/20 [Rx Last Taken Unknown] diltiazem HCl [Cardizem CD] 120 mg PO BID #60 cap 10/21/20 [Rx Last Taken Unknown] Allergy/AdvReac Type Severity Reaction Status Date / Time No Known Allergies Allergy Verified 10/17/20 16:10 Family History Mother Heart disease Myocardial infarction Father Dementia in Alzheimer's disease Surgical History Hx of cholecystectomy Hx of heart artery stent Social History household members: none Smoking Status: Never smoker alcohol intake: never substance use type: does not use Vital Signs Vital Signs Vital Signs: Weight Weight: 96.6 kg Body Mass Index (BMI) 36.2 Results Lab / Micro Data Result Diagrams: 10/20/20 06:14 10/20/20 06:14
== END 2020-10-21 13:13 | disposition skilled nursing facility (03) | DRG 195 ==
LOC: ED 18:33 → PCU 20:08
PROVIDERS: Physician Assistant; Admitting Provider Internal Medicine; Emergency Provider Emergency Medicine; PCP Family Medicine; Visit Provider Internal Medicine
DX: J18.9 Pneumonia, unspecified organism (principal); I48.0 Paroxysmal atrial fibrillation; I25.10 Atherosclerotic heart disease of native coronary artery without angina pectoris; I10 Essential (primary) hypertension; E78.5 Hyperlipidemia, unspecified; E03.9 Hypothyroidism, unspecified; Z86.16 Personal history of COVID-19; Z60.2 Problems related to living alone; Z86.73 Personal history of transient ischemic attack (TIA), and cerebral infarction without residual deficits; Z79.01 Long term (current) use of anticoagulants; Z82.0 Family history of epilepsy and other diseases of the nervous system; Z82.49 Family history of ischemic heart disease and other diseases of the circulatory system; Z87.01 Personal history of pneumonia (recurrent); Z90.49 Acquired absence of other specified parts of digestive tract; Z95.5 Presence of coronary angioplasty implant and graft
CPT/HCPCS: 36415; 71046; 80048; 80202; 83605; 83735; 84100; 85025; 87040; 87426; 87449; 87641; 93005; 94667; 97162; 97166; 97530; 97535; 99251; 99285; J7040; J7050; A4216; G0463

== ENCOUNTER 2022-12-11 04:16 | Emergency (ER) | payer MEDICARE, SELFPAY ==
[2022-12-11 04:17] VITALS: BP 170/71; BP 170/74; PULSE 77; RESP 16; TEMP 36.4; O2SAT 96; BMI 39.8
[2022-12-11] MEDS: 0.9% Normal Saline 1,000 ML 1000 ML IV (04:30)
--- NOTE | 2022-12-11 04:31 | EDS_ITS ---
HPI History of Present Illness Chief Complaint: General Illness Informant: patient Narrative Narrative: Patient presents with diarrhea and generalized weakness. She states about 3 days ago she ate some [place] food. She had never eaten from that restaurant before. It did not taste bad. However, after eating it she started with diarrhea. Initially it was very watery. It is starting to get slightly formed now. She has never had nausea or vomiting with this. She does not have abdominal pain. No flank pain. She denies urinary symptoms such as dysuria frequency urgency or odor. She has never seen black or blood in the diarrhea. She is on Eliquis but has no complaints of bleeding. She is came in because she just feels kind of worn out. She has been eating crackers and drinking some fluids. Her appetite is down but she is able to eat and drink. She thinks she has not been drinking as much fluids as she should have been. She does live alone. [facility] Medical History Afib CAD (coronary artery disease) (~12/06/19) HLD (hyperlipidemia) Hypertension Hypothyroidism Non-smoker Stroke/cerebrovascular accident Home Medications apixaban 5 mg tablet (Eliquis) 5 mg PO DAILY Check with primary doctor 10/05/20 [History Last Taken 10/17/20] diltiazem HCl 90 mg tablet 90 mg PO BID Check with primary doctor 10/05/20 [History Last Taken 10/17/20] hydrochlorothiazide 25 mg tablet 25 mg PO DAILY bp 10/05/20 [History Last Taken 10/17/20] levothyroxine 137 mcg tablet (Euthyrox) 137 mcg PO DAILY thyroid 10/05/20 [History Last Taken 10/17/20] lisinopril 10 mg tablet 5 mg PO QHS bp 10/05/20 [History Last Taken 10/17/20] sotalol 80 mg tablet 80 mg PO BID heart 10/05/20 [History Last Taken 10/17/20] atorvastatin 40 mg tablet 40 mg PO DAILY #30 tabs 10/21/20 [Rx Last Taken Unknown] Allergy/AdvReac Type Severity Reaction Status Date / Time azithromycin AdvReac Hives Verified 12/11/22 04:50 gabapentin AdvReac Other Verified 12/11/22 04:50 Family History Mother Heart disease Myocardial infarction Father Dementia in Alzheimer's disease Surgical History Hx of cholecystectomy Hx of heart artery stent Social History household members: none Smoking Status: Never smoker alcohol intake: never substance use type: does not use ROS ROS ED ROS Narrative A complete review of systems was performed and is negative except as documented in the history of present illness. Some specific details below. Constitutional: No recent fevers or chills. Slight malaise and tiredness with a few days of the diarrhea. EYE: No visual complaints or pain. ENT: No difficulty swallowing. No swelling. No pain. No GERD symptoms CV: No chest pain or palpitations. Respiratory: No dyspnea. No hemoptysis. No difficulty taking breaths. GI: Please see history of present illness. Again, no pain nausea or vomiting. She has only had the watery stools. : No frequency dysuria or hematuria. Musculoskeletal: No recent trauma. No pains. Skin: No rash. Nondiaphoretic. Neuro: No weakness or numbness. Endocrine: No polyuria or polydipsia. EXAM Physical Exam Narrative Exam Narrative: CONSTITUTIONAL: Patient is nontoxic in appearance. The patient looks co mfortable. HEENT: No notable trauma. Mucous membranes somewhat dry. EYES: No conjunctival injection. No icterus. CARDIOVASCULAR: Regular rate. Regular rhythm. No notable murmur. No JVD. RESPIRATORY: No respiratory distress. Breathing is unlabored. No wheezes. No rhonchi. No rales. No pain with a deep breath. GASTROINTESTINAL: Not distended. Bowel sounds are slightly increased. No tenderness. No guarding. No rebound. No palpable mass. No bruit. GENITOURINARY: No tenderness over the bladder. No CVA tenderness. MUSCULOSKELETAL: Atraumatic. No peripheral edema. No tenderness. NEUROLOGICAL: Patient is alert and appropriate. No focal deficit noted. SKIN: No noted rashes. No diaphoresis. PSYCHIATRIC: Patient is calm. Mood is appropriate. Const Vital Signs: 12/11/22 04:17 12/11/22 04:17 Temperature 97.5 F L 97.5 F L Temperature Source Temporal Temporal Pulse Rate 77 77 Respiratory Rate 16 16 Blood Pressure 170/71 H 170/74 H Blood Pressure Mean 104 106 Pulse Ox 96 96 Oxygen Delivery Method Room Air Room Air MDM MDM MDM Narrative Medical decision making narrative: Patient CBC shows slight elevation of her white count of 15 7. She has actually had this before also. But she denies any fevers recently. Remainder of CBC is normal. Patient's electrolytes do show slight rise of her BUN and creatinine showing some mild dehydration but she is given IV fluids here. Her liver function test are not showing any marked abnormalities. I do not have a urinalysis yet but she has no urinary symptoms whatsoever. She was given fluids here. She is feeling better. We will get her up and walk around. She states she would like to go home. She thinks the diarrhea is starting to get better because it is becoming formed. She is able to eat and drink. As long as she is stable walking we will get her home. She normally does use a cane or walker. Patient got up with her walker and walked extremely well. I think we can get her home at this time. I do not think any medications are needed. She is eating and drinking has no nausea. Diarrhea is improving. Lab Data Attestation: I reviewed the patient's lab results. Labs: Laboratory Results - last 24 hr 12/11/22 04:43 WBC 15.7 H RBC 4.36 Hgb 12.8 Hct 40.1 MCV 92.0 MCH 29.4 MCHC 31.9 L RDW Std Deviation 44.8 H RDW Coeff of Tor 13.2 Plt Count 278 MPV 9.0 Immature Gran % (Auto) 0.500 Neut % (Auto) 86.8 H Lymph % (Auto) 5.8 L Clinch % (Auto) 5.9 Eos % (Auto) 0.7 Baso % (Auto) 0.3 Absolute Neuts (auto) 13.6 H Absolute Lymphs (auto) 0.91 Nucleated RBC % 0 Sodium 137 Potassium 3.5 Chloride 105 Carbon Dioxide 23.0 Anion Gap 9 BUN 24 H Creatinine 1.12 H Estim Creat Clear Calc 33.80 Est GFR (MDRD) Af Amer 61 Est GFR (MDRD) Non-Af 50 L BUN/Creatinine Ratio 21.4 H Glucose 120 H Calcium 9.1 Total Bilirubin 0.90 AST 12 L ALT 12 L Alkaline Phosphatase 87 Total Protein 6.9 Albumin 2.9 L Globulin 4.0 Albumin/Globulin Ratio 0.7 L Discharge Plan Triage Chief Complaint: General Illness ED Provider: Miah Wilcox Dx/Rx/DC Orders Clinical Impression: Generalized weakness, Diarrhea, Dehydration Instructions: Dehydration, ED Diarrhea, Unknown Cause Prescriptions: No Action levothyroxine [Euthyrox] 137 mcg tablet 137 mcg PO DAILY Patient Comments: TAKE 1 TABLET BY MOUTH ONCE DAILY IN THE MORNING sotalol 80 mg tablet 80 mg PO BID Patient Comments: TAKE 1 TABLET BY MOUTH TWICE DAILY lisinopril 10 mg tablet 5 mg PO QHS Patient Comments: TAKE 1 TABLET BY MOUTH ONCE DAILY hydrochlorothiazide 25 mg tablet 25 mg PO DAILY diltiazem HCl 90 mg Tablet 90 mg PO BID Eliquis 5 mg Tablet 5 mg PO DAILY atorvastatin 40 mg tablet 40 mg PO DAILY Qty: 30 0RF Primary Care Provider: Oneil Warren Referrals: Oneil Warren MD [Primary Care Provider] - 1-2 Days if not improving Disposition Disposition: Home, Self Care
[2022-12-11 04:50] LABS: Absolute Lymphocyte Count 0.91 X10^3/uL (0.83-4.51); Absolute Neutrophil Count 13.6 X10^3/uL (2.0-7.7); Basophil# 0.04 X10^3/uL; Basophil% 0.3 % (0-1); Eosinophil# 0.11 X10^3/uL; Eosinophils% 0.7 % (0-5); Hematocrit 40.1 % (37-47); Hemoglobin 12.8 g/dL (12.0-15.0); Lymphocyte # 0.91 X10^3/ul (0.83-4.51); Lymphocyte % 5.8 % (19-41); Mean Corp Hgb Conc 31.9 g/dL (32-36); Mean Corpuscular Hgb 29.4 pg (27.0-32.0); Monocyte# 0.93 X10^3/uL; Monocyte% 5.9 % (0-10); NRBC Flagged by Analyzer 0 % (0-5); Neutrophil # 13.63 X10^3/uL (2.7-7.7); Neutrophil % 86.8 % (47-70); Platelet Count 278 K/mm3 (150-450); RBC Distribution Width CV 13.2 % (11.6-14.6); RBC Distribution Width SD 44.8 fl (35.1-43.9); Red Blood Count 4.36 M/mm3 (4.2-5.4); White Blood Count 15.7 K/mm3 (4.4-11.0)
[2022-12-11 05:07] LABS: ALB/GLOB Ratio 0.7 RATIO (0.9-2.4); AST(SGOT) 12 U/L (15-37); Alanine Aminotransfer ALT/SGPT 12 U/L (13-56); Albumin, Serum 2.9 g/dL (3.2-5.0); Alkaline Phosphatase 87 U/L (45-117); Anion Gap 9 (5-15); BUN 24 mg/dL (7-18); BUN/Creat Ratio 21.4 RATIO (10-20); Calcium,Total 9.1 mg/dL (8.5-10.1); Chloride 105 mmol/L (98-107); Creatinine, Serum 1.12 mg/dL (0.55-1.02); EST Glomerular Filtration Rate 50 mL/min (>60); Est Glom Filt Rate - Afr Amer 61 mL/min (>60); Glucose 120 mg/dL (74-106); Potassium 3.5 mmol/L (3.5-5.1); Protein, Total 6.9 g/dL (6.4-8.2); Sodium Level 137 mmol/L (136-145)
[2022-12-11 06:03] LABS: Mucous, Urine 0 SEEN /hpf (<or=2+); Red Blood Cells-Urine 0 SEEN /hpf (0-5); White Blood Cells 0 SEEN /hpf (0-5)
[2022-12-11 06:17] LABS: Color, Urine Yellow (Yellow); Glucose, Dipstick Normal (Normal); Ketone-Dipstick 5 mg/dl (Negative); Leukocyte Esterase-Dipstick Negative /ul (Negative); Nitrite-Dipstick Negative (Negative); Occult Blood-Urine 10 /ul (Negative); Protein-Dipstick Negative (Negative); Specific Gravity, Urine 1.015 (1.002-1.030); Urine Bilirubin Dipstick Negative (Negative); Urine Clarity Clear (Clear); Urine Urobilinogen Normal (Normal)
[2022-12-11 06:39] LABS: Bacteria 1+ /hpf (None Seen); Squamous Epithelial Cells - UA 0-5 SEEN /hpf (5-10)
== END 2022-12-11 06:52 | disposition home or self-care (01) ==
PROVIDERS: Emergency Provider Emergency Medicine; PCP Family Medicine; Visit Provider Emergency Medicine
DX: R53.1 Weakness (principal); E86.0 Dehydration; E78.5 Hyperlipidemia, unspecified; R19.7 Diarrhea, unspecified; I10 Essential (primary) hypertension; I25.10 Atherosclerotic heart disease of native coronary artery without angina pectoris; Z86.73 Personal history of transient ischemic attack (TIA), and cerebral infarction without residual deficits; E03.9 Hypothyroidism, unspecified
CPT/HCPCS: 80053; 81001; 85025; 96360; 99285; J7030; A4216